=== PATIENT | female | born 1990 | race Caucasian/White ===

== ENCOUNTER 2024-05-12 10:11 | Emergency (ER) | payer BC, SELFPAY ==
[2024-05-12 10:18] VITALS: BP 124/68; PULSE 78; TEMP 37.1; O2SAT 100; BMI 33.8
--- NOTE | 2024-05-12 10:28 | ED.GENADUL1 ---
HPI HPI - General Adult General Chief complaint: Vaginal Bleeding Stated complaint: PERIOD FOR 19 DAYS Time Seen by Provider: 05/12/24 10:19 Source: patient Mode of arrival: walk-in Limitations: no limitations History of Present Illness HPI narrative: 33-year-old female presents for vaginal bleeding which she has had for 19 days. She states it is heavier than a period. She reports that this has never happened to her previously and she is worried about becoming anemic. She has had some abdominal cramps and no fever or vomiting. Related Data Home Medications ?Medication ?Instructions ?Recorded ?Confirmed No Known Home Medications 05/12/24 05/12/24 Allergies Allergy/AdvReac Type Severity Reaction Status Date / Time tramadol (From Ultra) Allergy Rash Verified 05/12/24 10:16 Opioid HPI Opioid Management Most Recent Opioid Data: No Data to Display Review of Systems ROS Narrative A ten point review of systems is negative except as noted above. PFSH PFSH Social History Little interest or pleasure in doing things: not at all Feeling down, depressed, or hopeless: not at all Exam Narrative Exam Narrative: Nurses note and vital signs reviewed and patient is not hypoxic. General: The patient appears well and in no apparent distress. Patient is resting comfortably on cart. Skin: Warm, dry, no pallor noted. There is no rash noted. Head: Normocephalic, atraumatic Eye: Normal conjunctiva, no drainage Ears, Nose, Mouth, and Throat: oral mucosa is moist. Nares patent. Cardiovascular: Regular Rate and Rhythm Respiratory: Patient is in no distress, no accessory muscle use, lungs are clear to auscultation, no wheezing, rales or rhonchi Back: non-tender GI: Soft and nontender Musculoskeletal: The patient has no evidence of calf tenderness, no pitting edema, symmetrical pulses noted bilaterally Neurological: A&O, normal speech Psychiatric: Cooperative Constitutional Vital Signs, click to edit/add: Last Vital Signs Temp 98.8 F 05/12/24 10:18 Pulse 78 05/12/24 10:18 Resp 18 05/12/24 10:18 BP 124/68 05/12/24 10:18 Pulse Ox 100 05/12/24 10:18 O2 Del Method Room Air 05/12/24 10:18 Course Vital Signs Vital signs: Vital Signs Temperature 98.8 F 05/12/24 10:18 Pulse Rate 78 05/12/24 10:18 Respiratory Rate 18 05/12/24 10:18 Blood Pressure 124/68 05/12/24 10:18 Pulse Oximetry 100 05/12/24 10:18 Oxygen Delivery Method Room Air 05/12/24 10:18 Temperature 98.8 F 05/12/24 10:18 Pulse Rate 78 05/12/24 10:18 Respiratory Rate 18 05/12/24 10:18 Blood Pressure 124/68 05/12/24 10:18 Pulse Oximetry 100 05/12/24 10:18 Oxygen Delivery Method Room Air 05/12/24 10:18 Medical Decision Making MDM Narrative Medical decision making narrative: She is not and her hemoglobin is 11. She is able to be discharged home and will follow-up with her doctor. Treatment diagnosis and follow-up were discussed with the patient. Differential Diagnosis Differential Diagnosis: Menorrhagia, miscarriage, threatened miscarriage Lab Data Lab results reviewed: Yes I reviewed the patient's lab results Labs: Lab Results 05/12/24 Range/Units 10:35 WBC 10.6 (4.0-11.0) 10^3/uL RBC 3.75 L (4.20-5.40) 10^6/uL Hgb 11.0 L (12.0-16.0) g/dL Hct 32.8 L (36.0-48.0) % MCV 87.5 (81.0-99.0) fL MCH 29.3 (26.7-34.0) pg MCHC 33.5 (29.9-35.2) g/dL RDW 13.8 (11.0-15.0) % Plt Count 263 (150-450) 10^3/uL MPV 9.6 (9.5-13.5) fL Neut % (Auto) 56.8 (43.0-75.0) % Lymph % (Auto) 32.5 (20.5-60.0) % [place] % (Auto) 6.8 (1.7-12.0) % Eos % (Auto) 3.2 (0.9-7.0) % Baso % (Auto) 0.5 (0.2-2.0) % Neut # (Auto) 6.0 (1.4-6.5) 10^3/uL Lymph # (Auto) 3.4 (1.2-3.8) 10^3/uL [place] # (Auto) 0.7 (0.3-0.8) 10^3/uL Eos # (Auto) 0.3 (0.0-0.7) 10^3/uL Baso # (Auto) 0.1 (0.0-0.1) 10^3/uL Abs Immat Gran (auto) 0.02 (0.00-0.03) 10^3/uL Imm/Tot Granulo (auto) 0.2 (0.0-0.5) % Sodium 138 (136-145) mmol/L Potassium 3.4 L (3.5-5.1) mmol/L Chloride 104 (98-107) mmol/L Carbon Dioxide 29.1 (21.0-32.0) mmol/L Anion Gap 8.3 BUN 12.0 (7.0-18.0) mg/dL Creatinine 0.78 (0.55-1.02) mg/dL Est GFR ( Amer) >60 (>=60 mL/min/1.73m^2) Est GFR (Non-Af Amer) >60 (>=60 mL/min/1.73m^2) BUN/Creatinine Ratio 15.4 Glucose 88 (74-106) mg/dL Calcium 8.4 L (8.5-10.1) mg/dL Serum HCG, Qual Negative (NEGATIVE) Discharge Plan Discharge Chief Complaint: Vaginal Bleeding Clinical Impression: Menorrhagia Patient Disposition: Home, Self-Care Time of Disposition Decision: 11:15 Condition: Good Mode of Transportation: Private Vehicle Prescriptions / Home Meds: No Action No Known Home Medications Print Language: Lebanese Instructions: Menorrhagia (ED) Referrals: Physician,Non-Staff, MD [Primary Care Provider] - 1 week
[2024-05-12 10:42] LABS: Basophils Absolute Auto 0.1 10^3/uL (0.0-0.1); Basophils Percent Auto 0.5 % (0.2-2.0); Eosinophils Absolute Auto 0.3 10^3/uL (0.0-0.7); Eosinophils Percent Auto 3.2 % (0.9-7.0); Hematocrit 32.8 % (36.0-48.0); Immature Granulocytes Abs Auto 0.02 10^3/uL (0.00-0.03); Immature Granulocytes Pct Auto 0.2 % (0.0-0.5); Lymphocytes Absolute Auto 3.4 10^3/uL (1.2-3.8); Lymphocytes Percent Auto 32.5 % (20.5-60.0); Mean Corpuscular HGB Conc 33.5 g/dL (29.9-35.2); Mean Corpuscular Hemoglobin 29.3 pg (26.7-34.0); Mean Corpuscular Volume 87.5 fL (81.0-99.0); Mean Platelet Volume 9.6 fL (9.5-13.5); Monocytes Absolute Auto 0.7 10^3/uL (0.3-0.8); Monocytes Percent Auto 6.8 % (1.7-12.0); Neutrophils Percent Auto 56.8 % (43.0-75.0); Platelet Count 263 10^3/uL (150-450); Red Blood Count 3.75 10^6/uL (4.20-5.40); Red Cell Distribution Width 13.8 % (11.0-15.0); White Blood Count 10.6 10^3/uL (4.0-11.0)
[2024-05-12 11:02] LABS: Anion Gap 8.3; BUN Creatinine Ratio 15.4; Calcium 8.4 mg/dL (8.5-10.1); Carbon Dioxide 29.1 mmol/L (21.0-32.0); Chloride 104 mmol/L (98-107); Estimated GFR (African America >60 (>=60 mL/min/1.73m^2); Estimated GFR (Non-African Ame >60 (>=60 mL/min/1.73m^2); Glucose 88 mg/dL (74-106); Potassium 3.4 mmol/L (3.5-5.1); Sodium 138 mmol/L (136-145)
[2024-05-12 11:07] LABS: HCG Qualitative NEGATIVE (NEGATIVE); Internal Control Within Normal Limits
== END 2024-05-12 11:29 | disposition home or self-care (01) ==
PROVIDERS: Emergency Provider Emergency Medicine
DX: N92.0 Excessive and frequent menstruation with regular cycle (principal)
CPT/HCPCS: 36415; 80048; 84703; 85025; 99283

== ENCOUNTER 2025-01-03 16:10 | Emergency (ER) | payer BC, SELFPAY ==
--- OUTSIDE RECORDS SUMMARY | 2025-01-01 10:24 | XMS_ITS ---
Author Organization OHIP Support Name Relationship Address Phone BEDDOW, LAURA Significant Other Unknown Unavailab le BEDDOW, LAURA Significant Other Unknown Unavailab le BEDDOW, LAURA Significant Other Unknown Unavailab le BEDDOW, LAURA Significant Other Unknown Unavailab le BEDDOW, LAURA Significant Other Unknown Unavailab le BEDDOW, LAURA Significant Other Unknown Unavailab le BEDDOW, LAURA Significant Other Unknown Unavailab le BEDDOW, LAURA Significant Other Unknown Unavailab le BEDDOW, LAURA Significant Other Unknown Unavailab le BEDDOW, LAURA Significant Other Unknown Unavailab le BEDDOW, LAURA Significant Other Unknown Unavailab le BEDDOW, LAURA Significant Other Unknown Unavailab le BEDDOW, LAURA Significant Other Unknown Unavailab le BEDDOW, LAURA Significant Other Unknown Unavailab le BRIEN, MEGAN Mother Unknown [phone] BRIEN, MEGAN Mother Unknown [phone] BEDDOW, LAURA Significant Other Unknown [place]availab [place] [address] [phone] BRIEN, MEGAN Mother Unknown [phone] BRIEN, MEGAN Mother Unknown [phone] BEDDOW, LAURA Significant Other Unknown Unavailab [place] [address] [phone] BRIEN, MEGAN Mother Unknown [phone] BRIEN, MEGAN Mother Unknown [phone] BEDDOW, LAURA Significant Other Unknown Unavailab [place] [address] [phone] Care Team Providers 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 Name Role Phone ILANA MARQUEZ Primary Care Unavailable ILANA MARQUEZ Primary Care Unavailable GUMARO WATKINS Attending Unavailable KADE LYNCH Attending Unavailable ILANA MARQUEZ Referring Unavailable ILANA MARQUEZ Primary Care Unavailable ILANA MARQUEZ Primary Care Unavailable ILANA MARQUEZ Primary Care Unavailable ELY REEVES Attending Unavailable CANDELARIO SYKESA Janine Referring Unavailable NO PCP, NO PCP Primary Care Unavailable KROTZER LEVY M Referring Unavailable NO PCP, NO PCP Primary Care Unavailable KROTZER LEVY M Referring Unavailable NO PCP, NO PCP Primary Care Unavailable KRCANDELARIO KAISERA M Attending Unavailable KROTISATU LEVY M Referring Unavailable NO PCP, NO PCP Primary Care Unavailable KROTZER LEVY M Referring Unavailable NO PCP, NO PCP Primary Care Unavailable JEREMY LAM Referring Unavailable NO PCP, NO PCP Primary Care Unavailable JEREMY LAM Referring Unavailable NO PCP, NO PCP Primary Care Unavailable KADE LYNCH Referring Unavailable NO PCP, NO PCP Primary Care Unavailable CANDELARIO SYKESA M Attending Unavailable ARCENIO SYKES Referring Unavailable NO PCP, NO PCP Primary Care Unavailable KROTZER LEVY M Referring Unavailable KRAWILDA LEVY M Referring Unavailable KRLEVY KAISER Attending Unavailable Purpose PROBLEMS DATE TYPE CONDITION / CODE ATTENDING STATUS [facility] 01/01/2025 Unknown Encounter for supervision of normal , unspecified, first trimester / Z34.91(ICD-10) LEVY SYKES [facility] 01/01/2025 Unknown Encounter for gynecological examination (general) (routine) without abnormal findings / Z01.419(ICD-10) LEVY SYKES [facility] 01/01/2025 Unknown Initial Visit / FREETEXT(AOF) LEVY SYKES [facility] 12/15/2024 Unknown Threatened abort ion / O20.0(ICD-10) [facility] 12/09/2024 Unknown Other specified diseases and conditions complicating / O99.891(ICD-10) [facility] 12/09/2024 Unknown Dorsalgia, unspe cified / M54.9(ICD-10) [facility] 12/09/2024 Unknown Hemorrhage in ea rly , unspecified / O20.9(ICD-10) [facility] 12/09/2024 Unknown Other specified related conditions, first trimester / O26.891(ICD-10) [facility] 12/09/2024 Unknown Unspecified abdo catherine pain / R10.9(ICD-10) [facility] 10/19/2024 Unknown Chronic cough / R05.3(ICD-10) ELY REEVES [facility] 10/19/2024 Unknown Cough / FREETEXT(AOF) ELY REEVES [facility] 08/05/2024 Unknown Periapical absce ss without sinus / K04.7(ICD-10) [facility] 08/05/2024 Unknown Other specified disorders of teeth and supporting structures / K08.89(ICD-10) [facility] 08/05/2024 Unknown Localized swelli ng, mass and lump, head / R22.0(ICD-10) [facility] 08/05/2024 Unknown Dental Pain / FREETEXT(AOF) [facility] 04/08/2024 Unknown Amenorrhea, unsp ecified / N91.2(ICD-10) CRIS, KADE L [facility] 04/08/2024 Unknown Amenorrhea / FREETEXT(AOF) CRIS KADE L [facility] 04/02/2024 Unknown Acute bronchitis , unspecified / J20.9(ICD-10) GUMARO WATKINS [facility] 04/02/2024 Unknown Cold Like Sympto ms / FREETEXT(AOF) GUMARO WATKINS [facility] 02/06/2024 Unknown Phlebitis and thrombophlebitis of unspecified site / I80.9(ICD-10) [facility] 02/06/2024 Unknown Leg Pain / FREETEXT(AOF) NA [facility] 02/06/2024 Unknown Wound Check, Leg Pain / UNK(Unknown) NA Active [facility] PROCEDURES No Procedure Records Found VITAL SIGNS No Vital Signs Records Found RESULTS CHLAMYDIA/GONORRHOEAE BY PCR , FLUID Observed: 01/01/2025 11:36 AM Status: COMPLETED Source: [facility] CHLAMYD[place] PCR, [place] Negative Chlamydia trachomatis not detected by nucleic acid amplification. This does not exclude the possibility of infection because results are dependent on adequate specimen collection. GONORRHOEAE PCR, [place] Negative Neisseria gonorrhoeae not detected by nucleic acid amplification. This does not exclude the possibility of infection because results are dependent on adequate specimen collection. Performed By: #### CGTPCR ## ## [facility] ([facility]) [address] [place] [address] VIR HIGH RISK HPV W/HEIDI Collected: 11:36 AM Status: COMPLETED Source: [facility] TYPE CODE TESTS RESULT OUT OF RANGE REFERENCE UNITS LAB HPV16 HPV 16 Positive Abnormal Negative LAB HPV18 HPV 18 Negative Negative LAB HRHPV OTHER HIGH RISK HPV Negative Negative Result Comment: HPV types 31 , 33, 35, 39, 45, 52, 56, 58, 59, 66, and 68 DNA were undetectable. Performed By: #### HPV #### [facility] ([facility]) [address] [place] [address] VIR GLUCOSE TOLERANCE, 3 HOURS Collected: 0 12/29/2024 11:27 AM Status: COMPLETED Source: [facility] TYPE CODE TESTS RESULT OUT OF RANGE REFERENCE UNITS LAB GLU3 GLUCOSE TOLERANCE TEST, 3 HOUR 141 High 65-99 mg/dL Performed By: #### GLU3 #### [facility] ([facility]) [address] [place] [address] VIR SECOND HOUR GLUCOSE TOLERANC E 100 GM LOAD Collected: 12/29/2024 10:25 AM Status: COMPLETED Source: [facility] Order Comment: [employer] ational Workshop Conference: Recommendations and Rationale for Screening and diagnosis of Gestational Diabetes Mellitus 2 or more of the following must be met or exceeded for a positive diagnosis. FASTING: >=95 mg/dL 1hr post 100g load: >=180 mg/dL 2hr post 100g load: >=155 mg/dL 3hr post 100g load: >=140 mg/dL TYPE CODE TESTS RESULT OUT OF RANGE REFERENCE UNITS LAB 100GT2 2ND HR GTT 100GM LOAD 214 High 70-139 mg/dL Performed By: #### [id number] ## ## [facility] ([facility]) [address] [place] [address] VIR GLUCOSE TOLERANCE, 1 HOUR Collected: 12/29/2024 9:24 AM Status: COMPLETED Source: [facility] TYPE CODE TESTS RESULT OUT OF RANGE REFERENCE UNITS LAB GLU1 GLUCOSE TOLERANCE TEST, 1 HOUR 197 High 120-170 mg/dL Performed By: #### GLU1 #### [facility] ([facility]) [address] [place] [address] VIR GLUCOSE TOLERANCE, FASTING Collected: 8:20 AM Status: COMPLETED Source: [facility] TYPE CODE TESTS RESULT OUT OF RANGE REFERENCE UNITS LAB GLUF GLUCOSE TOLERANCE TEST, FASTING 85 65-99 mg/dL Performed By: #### GLUF #### [facility] ([facility]) [address] [place], [place] [id number] VIR CBC (NO DIFF) Collected: 12/25/2024 8:51 AM S tatus: COMPLETED Source: [facility] TYPE CODE TESTS RESULT OUT OF RANGE REFERENCE UNITS LAB WBC WBC 9.1 4-11 x10E9/L LAB RBC RBC COUNT 4.70 3.8-5.2 X10E12/L LAB HGB HEMOGLOBIN 11.4 Low 11.7-15.5 g/dL LAB HCT HEMATOCRIT 35.5 35-47 % LAB MCV MCV 76 Low 80-100 fL LAB MCH MCH 24.2 Low 27-34 pg LAB MCHC MCHC 32.1 32-36 g/dL LAB RDW RDW 17.3 High 11.5-15 % LAB PLTC PLATELET COUNT 332 150-450 X10E9/L LAB MPV MPV 8.2 7-12 fL Performed By: #### CBC #### [facility] ([facility]) [address] [place] [address] VIR GLU 1H POST 50G LOAD Collected: 12/25/2024 8:51 AM Status: COMPLETED Source: [facility] TYPE CODE TESTS RESULT OUT OF RANGE REFERENCE UNITS LAB GL1 GLUCOSE, 1HR POST 50GM LOAD 163 High 65-139 mg/dL Performed By: #### GL1 #### [facility] ([facility]) [facility] [place] [address] VIR TYPE AND SCREEN Collected: 12/25/2024 8:51 AM Status : C Source: [facility] TYPE CODE TESTS RESULT OUT OF RANGE REFERENCE UNITS LAB ABO_INTEP ABO_INTEP A LAB RH_INTEP RH_INTEP Positive LAB ABSC_INTEP ANTIBODY SCREEN Negative Performed By: #### TSC #### [facility] ([facility] [address] [place] [address] VIR SICKLE SOLUBILITY Collected: 12/25/2024 8:51 AM Status: COMPLETED Source: [facility] TYPE CODE TESTS RESULT OUT OF RANGE REFERENCE UNITS LAB SIKL SICKLE SOLUBILITY Negative Negative Performed By: #### SIKL #### [facility] ([facility]) [address] [place] [address] [place] [address] VIR HIV 1 AND 2 AB/AG SCREEN (P2 4 AG) Collected: 12/25/2024 8:51 AM Status: COMPLETED Source: [facility] Order Comment: This informat ion has been disclosed to you from confidential [...] release of HIV test results or diagnoses. TYPE CODE TESTS RESULT OUT OF RANGE REFERENCE UNITS LAB HIV4 HIV 1 AND 2 AB/AG SCREEN Non-Reactive Non-Reactive Performed By: #### HIV4 #### [facility] ([facility]) [address] [place] [address] [place] [address] VIR HEPATITIS PANEL, ACUTE Collected: 12/25/2024 8: 51 AM Status: COMPLETED Source: [facility] TYPE CODE TESTS RESULT OUT OF RANGE REFERENCE UNITS LAB HBAG HEPATITIS B SURF AG Non-Reactive Non-Reactive LAB HAVM HEPATITIS A IGM Non-Reactive Non-Reactive LAB HBCM HEPATITIS B CORE IGM Non-Reactive Non-Reactive LAB HCV ANTI HCV W/PCR REFLX Non-Reactive Non-Reactive Result Comment: If recent in fection suspected, recommend repeat testing (>2 months). Xrngrc-es-yfqnlc ratio is <1.0. Performed By: #### AHP #### [facility] ([facility]) [address] [place] [address] [place] [address] VIR RUBELLA ANTIBODY, IGG Collected: 2024 8:51 AM Status: COMPLETED Source: [facility] Order Comment: Interpretatio n < 8 NEGATIVE - considered not immune. 8 - 9 EQUIVOCAL - consider retesting with new specimen. > 9 POSITIVE - considered immune. TYPE CODE TESTS RESULT OUT OF RANGE REFERENCE UNITS LAB RUBE RUBELLA IGG 26 <9 IU/mL Performed By: #### RUBG #### [facility] ([facility]) [address] [place] [address] [address] [place] [address] VIR SYPHILIS TOTAL(UNKNOWN SYPHI LIS STATUS) Collected: 12/25/2024 8:51 AM Status: COMPLETED Source: [facility] Order Comment: NON REACTIVE No serologic evidence of infection to Treponema pallidum. Repeat testing may be considered in patients with suspected acute or primary syphilis in 2 to 4 weeks. TYPE CODE TESTS RESULT OUT OF RANGE REFERENCE UNITS LAB SYPHT SYPHILIS TOTAL <^0.2 <=0.8 AI Performed By: #### SYPHT ### # [facility] ([facility]) [address] [place] [address] [place] [address] VIR VARICELLA ZOSTER ANTIBODY, IGG Collected: 12/25 8:51 AM Status: COMPLETED Source: [facility] Order Comment: Intepretation < 0.9 Negative 0.9 - 1.0 Equivocal > 1.0 Positive TYPE CODE TESTS RESULT OUT OF RANGE REFERENCE UNITS LAB VZVG VARICELLA IGG 0.7 <1.0 AI Performed By: #### VZVG #### [facility] ([facility]) [address] [place] [address] [place] [address] VIR URINALYSIS Collected: 12/25/2024 8:16 AM S tatus: COMPLETED Source: [facility] Order Comment: Urine receive d without preservative. Delays in transport may affect results. Interpret with caution. A clinical correlation is recommended. TYPE CODE TESTS RESULT OUT OF RANGE REFERENCE UNITS LAB COLP COLOR Yellow Yellow LAB TURB TURBIDITY Clear Clear LAB SPGR SPECIFIC GRAVITY 1.020 1.003-1.035 NA LAB NITR NITRITE Negative Negative LAB PHUR PH,URINE 5.5 5.0-8.5 NA LAB LEST LEUKOCYTE ESTERASE Negative Negative LAB PRU PROTEIN Negative Negative LAB KET KETONES (URINE) Negative Negative LAB UROB UROBILINOGEN <1.1 eu/dL <1.1 eu/dL LAB BILEU BILIRUBIN (URINE) Negative Negative LAB BLUR BLOOD/HGB Negative Negative LAB GLUR GLUCOSE (URINE) Negative Negative Performed By: #### UA #### [facility] ([facility]) [address] [place] [address] VIR DRUG SCREEN, URINE Collected: 12/25/2024 8:16 AM Sta tus: COMPLETED Source: [facility] TYPE CODE TESTS RESULT OUT OF RANGE REFERENCE UNITS LAB AMPH AMPHETAMINE/METH AM P Negative Negative Result Comment: AMPH/METH sc reening cut off = 1000 ng/mL LAB COKE COCAINE METABOLITE Negative Negative Result Comment: Cocaine scre ening cut off value = 300 ng/mL LAB MDMA ECSTASY Negative Negative Result Comment: Ecstasy scre ening cut off value = 500 ng/mL LAB METH METHADONE Negative Negative Result Comment: Methadone sc reening cut off value = 300 ng/mL. LAB OPITM OPIATES Negative Negative Result Comment: Opiates scre ening cut off value = 300 ng/mL This test is used for the detection of codeine, hydrocodone (>1000 ng/mL), morphine and hydromorphone (>900 ng/mL) in urine. LAB OXYX OXYCODONE Negative Negative Result Comment: Oxycodone sc reening cut off value = 300 ng/mL This test is used for the detection of oxycodone and oxymorphone in urine. LAB PCP PHENCYCLIDINE Negative Negative Result Comment: Phencyclidin e screening cut off value = 25 ng/mL LAB THC CANNABINOIDS Negative Negative Result Comment: Cannabinoids /THC screening cut off value = 50 ng/mL LAB BRIGIDO BARBITURATES Negative Negative Result Comment: Barbiturates screening cut off value = 200 ng/mL LAB BZOTM BENZODIAZEPINES Negative Negative Result Comment: Benzodiazepi oscar screening cut off value = 200 ng/mL Performed By: #### DSU #### [facility] ([facility]) [address] [place] [address] VIR URINE CULTURE Observed: 12/25/2024 8:16 AM Status: COMPLETED Source: [facility] Order Comment: Urine receive d without preservative - delays in transport may affect results. Interpret with caution and clinical correlation is recommended. CULTURE RESULTS NO GROWTH AT <1000 CFU/mL Performed By: #### UC #### [facility] ([facility]) [address] [place] [address] VIR HCG-BETA, SERUM Collected: 10:01 AM Status: COMPLETED Source: [facility] Order Comment: WEEKS (SINCE LMP) MIU/mL 3 WEEKS 5 - 50 4 WEEKS 5 - 426 5 WEEKS 18 - 7,340 6 WEEKS 1,080 - 56,500 7-8 WEEKS 7,650 - 229,000 9-12 WEEKS 25,700 - 288,000 13-16 WEEKS 13,300 - 254,000 17-24 WEEKS 4,060 - 165,400 25-40 WEEKS 3,640 - 117,000 MALES AND NON- FEMALES - <5 MIU/mL This test has been FDA approved for use in only. Elevated levels are not necessarily diagnostic for trophoblastic or nontrophoblastic neoplasms. TYPE CODE TESTS RESULT OUT OF RANGE REFERENCE UNITS LAB HCG SERUM B HCG,3RD I.S. 6392 mIU/mL Performed By: #### HCG #### [facility] ([facility]) [address] [place] [address] VIR US PREG LESS THAN 14 WKS WITH TRANSVAGINAL Observed: 12/15/2024 8:59 AM Status: COMPLETED Source: [facility] US PREG LESS THAN 14 WKS WIT H TRANSVAGINAL CLINICAL INFORMATION: Prior ultrasound was of unknown location. Estimated gestational age of 8 weeks 0 days by last menstrual period. Last menstrual period: 10/20/2024. COMPARISON: Obstetric ultrasound dated 12/10/2024. FINDINGS: Transvaginal and limited transabdominal ultrasound of the pelvis. UTERUS AND GESTATIONAL SAC: Intrauterine gestation: Single. Gestational sac: Mean sac diameter of 0.9 cm. Normal rounded morphology noting small volume fluid within the sac. Yolk sac: 0.1 cm (suboptimally visualized) Sawyer-rump length (CRL): 0.7 cm corresponding to a gestational age of 6 weeks 4 days +/- 2 days. heart motion: 139 bpm. Subchorionic hemorrhage: None. OVARIES: No suspicious masses. Right ovary: 5.9 x 5.9 x 6.1 cm. Similar simple cysts for example measuring 3.0 x 2.4 x 2.2 cm. Similar 4.3 x 3.9 x 4.3 cm hemorrhagic cyst versus endometrioma. Left ovary: 4.6 x 2.4 x 3.4 cm. Benign corpus luteum measures 2.4 x 1.5 x 1.9 cm. Similar dominant follicle measures 1.7 x 0.9 x 1.3 cm. FREE FLUID: Small volume simple pelvic fluid. IMPRESSION: 1. Single live intrauterine gestation with crown-rump length measuring 0.7 cm corresponding to a gestational age of 6 weeks 4 days +/- 2 days. Relative small volume amniotic fluid noted within the gestational sac. Recommend attention on follow-up. 2. Similar right ovarian 4.3 cm hemorrhagic cyst versus endometrioma. 3. Similar right simple ovarian cysts. 4. Benign left corpus luteum. 5. Small volume simple pelvic fluid. Finalized by Mercedes Hensley MD on 12/15/2024 9:47 AM HCG-BETA, SERUM Collected: 8:15 AM Status: COMPLETED Source: [facility] Order Comment: WEEKS (SINCE LMP) MIU/mL 3 WEEKS 5 - 50 4 WEEKS 5 - 426 5 WEEKS 18 - 7,340 6 WEEKS 1,080 - 56,500 7-8 WEEKS 7,650 - 229,000 9-12 WEEKS 25,700 - 288,000 13-16 WEEKS 13,300 - 254,000 17-24 WEEKS 4,060 - 165,400 25-40 WEEKS 3,640 - 117,000 MALES AND NON- FEMALES - <5 MIU/mL This test has been FDA approved for use in only. Elevated levels are not necessarily diagnostic for trophoblastic or nontrophoblastic neoplasms. TYPE CODE TESTS RESULT OUT OF RANGE REFERENCE UNITS LAB HCG SERUM B HCG,3RD I.S. 3961 mIU/mL Performed By: #### HCG #### [facility] ([facility]) [address] [place] [address] VIR HCG-BETA, SERUM Collected: 7:53 AM Status: COMPLETED Source: [facility] Order Comment: WEEKS (SINCE LMP) MIU/mL 3 WEEKS 5 - 50 4 WEEKS 5 - 426 5 WEEKS 18 - 7,340 6 WEEKS 1,080 - 56,500 7-8 WEEKS 7,650 - 229,000 9-12 WEEKS 25,700 - 288,000 13-16 WEEKS 13,300 - 254,000 17-24 WEEKS 4,060 - 165,400 25-40 WEEKS 3,640 - 117,000 MALES AND NON- FEMALES - <5 MIU/mL This test has been FDA approved for use in only. Elevated levels are not necessarily diagnostic for trophoblastic or nontrophoblastic neoplasms. TYPE CODE TESTS RESULT OUT OF RANGE REFERENCE UNITS LAB HCG SERUM B HCG,3RD I.S. 2789 mIU/mL Performed By: #### HCG #### [facility] ([facility]) [address] [place] [address] VIR US PREG LESS THAN 14 WKS WITH TRANSVAGINAL Observed: 12/10/2024 2:10 PM Status: COMPLETED Source: [facility] US PREG LESS THAN 14 WKS WIT H TRANSVAGINAL US PREG LESS THAN 14 WKS WITH TRANSVAGINAL: 12/10/2024 2:10 PM Clinical: Bleeding in early . Real-time transabdominal and transvaginal sonography pelvis performed. In the endometrium, there appears to be flickering cardiac activity at 1 28 bpm. However, there is almost no surrounding amniotic fluid and embryonic pole could not be measured with certainty. The right ovary is enlarged measuring 6.0 x 5.3 x 8.5 cm. Right ovary contains multiple simple cysts measuring up to 3.5 cm. In addition, there is a solid- appearing hypoechoic mass in the right ovary measuring 4.3 cm without internal color flow vascularity. Left ovary measures 4.1 x 2.6 x 2.7 cm. There is a vague hyperechoic area in the left ovary measuring approximately 2 cm, without color flow vascularity. Moderate amount of cul-de-sac fluid present. IMPRESSION: * Intrauterine suspected with cardiac activity identified but almost no surrounding amniotic fluid and unmeasurable embryonic pole. * Abnormal multicystic right ovary with the presence of a more solid 4.3 cm lesion, differential diagnosis includes endometrioma and hemorrhagic cyst. * Ectopic difficult to exclude. * Short-term follow-up and beta hCG correlation recommended recommended. THIS REPORT CONTAINS A SIGNIFICANT RESULT AND/OR RECOMMENDATION, WHICH REQUIRES THE ATTENTION OF THE LICENSED CAREGIVER RESPONSIBLE FOR THIS PATIENT. THEREFORE, I SPECIFICALLY DESIGNATED THIS REPORT TO BE TELEPHONED BY THE RADIOLOGY DEPARTMENT. Finalized by James Paez MD on 12/10/2024 3:16 PM HCG-BETA, SERUM Collected: 8:11 AM Status: COMPLETED Source: [facility] Order Comment: WEEKS (SINCE LMP) MIU/mL 3 WEEKS 5 - 50 4 WEEKS 5 - 426 5 WEEKS 18 - 7,340 6 WEEKS 1,080 - 56,500 7-8 WEEKS 7,650 - 229,000 9-12 WEEKS 25,700 - 288,000 13-16 WEEKS 13,300 - 254,000 17-24 WEEKS 4,060 - 165,400 25-40 WEEKS 3,640 - 117,000 MALES AND NON- FEMALES - <5 MIU/mL This test has been FDA approved for use in only. Elevated levels are not necessarily diagnostic for trophoblastic or nontrophoblastic neoplasms. TYPE CODE TESTS RESULT OUT OF RANGE REFERENCE UNITS LAB HCG SERUM B HCG,3RD I.S. 1982 mIU/mL Performed By: #### HCG #### [facility] ([facility]) [address] [place] [address] VIR TYPE AND SCREEN Collected: 12/06/2024 8:16 AM Status : C Source: [facility] TYPE CODE TESTS RESULT OUT OF RANGE REFERENCE UNITS LAB ABO_INTEP ABO_INTEP A LAB RH_INTEP RH_INTEP Positive LAB ABSC_INTEP ANTIBODY SCREEN Negative Performed By: #### TSC #### [facility] ([address] [address] VIR HCG-BETA, SERUM Collected: 8:11 AM Status: COMPLETED Source: [facility] Order Comment: WEEKS (SINCE LMP) MIU/mL 3 WEEKS 5 - 50 4 WEEKS 5 - 426 5 WEEKS 18 - 7,340 6 WEEKS 1,080 - 56,500 7-8 WEEKS 7,650 - 229,000 9-12 WEEKS 25,700 - 288,000 13-16 WEEKS 13,300 - 254,000 17-24 WEEKS 4,060 - 165,400 25-40 WEEKS 3,640 - 117,000 MALES AND NON- FEMALES - <5 MIU/mL This test has been FDA approved for use in only. Elevated levels are not necessarily diagnostic for trophoblastic or nontrophoblastic neoplasms. TYPE CODE TESTS RESULT OUT OF RANGE REFERENCE UNITS LAB HCG SERUM B HCG,3RD I.S. 738 mIU/mL Performed By: #### HCG #### [facility] ([facility]) [address] [place] [address] VIR XR CHEST 2 VWS Observed: 10/19/2024 12:52 AM Status: COMPLETED Source: [facility] XR CHEST 2 VWS History: Cough Exam/Technique: PA and lateral chest Comparison: 04/02/2024 Findings: There is no evidence of active pulmonary or pleural disease. Cardiac and mediastinal contours are within normal limits. IMPRESSION: Normal chest radiographs. Finalized by Ángel Posadas MD on 10/19/2024 12:54 AM XR CHEST 1 VW Observed: 04/02/2024 7:32 PM Status: COMPLETED Source: [facility] XR CHEST 1 VW XR CHEST 1 VW 04/02/2024 7:32 PM INDICATION: Cough and fever COMPARISON: XR chest 07/09/2022 TECHNIQUE: AP upright radiographic view(s) obtained. FINDINGS: Respiratory: No pneumothorax, pleural effusion, or focal consolidation. Cardiomediastinum: Nonenlarged. IMPRESSION: * No acute pulmonary process. Approved by Resident: Luis Miguel Raygoza MD on 04/02/2024 7:33 PM I, Bryce Parker MD have personally reviewed the image(s) and agree with and/or edited the report Finalized by Bryce Parker MD on 04/02/2024 7:36 PM SARS/FLU A+B/RSV BY NAAT/MOLECULAR Observed: 04/02/2024 7:25 PM Status: COMPLETED Source: [facility] FLU A PCR Positive (qualifier value) FLU B PCR Negative (qualifier value) RSV by PCR Negative (qualifier value) SARS CoV 2 Not detected (qualifier value) NOTE The Xpert Xpress SARS-CoV-2/Flu/RSV Plus test is a rapid, multiplexed real-time RT-PCR test intended for the simultaneous qualitative detection and differentiation of SARS-CoV-2, influenza A, influenza B and respiratory syncytial virus (RSV) viral RNA from individuals suspected of respiratory viral infection consistent with COVID-19 by their healthcare provider. This test has not been validated in asymptomatic patients. The Xpert Xpress SARS-CoV-2 test is intended for use by qualified and trained operators who are performing tests using either [employer] or [employer] systems and is limited to laboratories that meet the CLIA requirements to perform high and moderate complexity tests. The Xpert Xpress SARS-CoV-2/Flu/RSV Plus is only for use under the Food and Drug Administration's Emergency Use Authorization. Results are for the simultaneous detection and differentiation of SARS-CoV-2, influenza A, influenza B and RSV nucleic acids in clinical specimens. SARS-CoV-2, influenza A, influenza B and RSV RNA identified by this test are generally detectable in upper respiratory samples during the acute phase of infection. Positive results are indicative of the presence of the identified virus, but do not rule out bacterial infection or co-infection with other pathogens not detected by this test. Clinical correlation with patient history and other diagnostic information is necessary to determine patient infection status. The agent detected may not be the definite cause of disease. Negative results do not preclude SARS-CoV-2, influenza A, influenza B and RSV infection and should not be used as the sole basis for treatment or other patient management decisions. Negative results must be combined with clinical observations, patient history and epidemiological information. An Invalid result may occur with specimen-associated inhibition unable to be resolved with specimen repeat. Fact Sheet for Healthcare Providers: https://www.fda.gov/media/198971/download Fact Sheet for Patients: https://www.fda.gov/media/704803/download Performed By: #### COVFLR ## ## [facility] ([id number]) [address] [place] [address] D DIMER Collected: 4 3:45 PM Status: COMPLETED Source: [facility] TYPE CODE TESTS RESULT OUT OF RANGE REFERENCE UNITS LAB DDMR(LOINC) D DIMER <150 <255 ng/mL DDU Result Comment: Results <255 ng/mL DDU: The presence of a VTE can safely be excluded with a negative D-Dimer result and Wells score. A negative result doesn't exclude the possibility of DIC. The test be repeated along with other diagnostic tests if the patient's symptoms persist or worsen. [email or web address] Performed By: #### [id number] # ### [facility] ([id number]) [address] [facility] [place], [place] [address] ALLERGIES DATE TYPE / CODE NAME / CODE REACTION SEVERITY SOURCE 01/20/2017 DRUG INGREDI~NON-CBORD/41 [id number](SNOMED CT) TRAMADOL Anxiety Low [facility] ENCOUNTERS ADMIT/DISCHARGE ACCOUNT NUMBER ADMITTING ENCOUNTER CLASS LOCATION SOURCE 01/01/2025/ 5 [id number] Ambulatory Buildin 18 [facility] 12/29/2024 [id number] Ambulatory Building:[facility] 12/25/2024 [id number] Ambulatory Building:[facility] 12/23/2024/ 5 [id number] Ambulatory Buildin 18 [facility] 12/15/2024 [id number] Ambulatory Building: C _LAB [facility] 12/15/2024/ 5 [id number] Ambulatory Building:[facility] 12/13/2024 [id number] [facility] 12/11/2024 [id number] Amb[facility] 12/10/2024/ 5 [id number] Ambulatory Building:[facility] 12/09/2024 [id number] Ambulatory Building:[facility] _LAB [facility] 12/06/2024 [id number] Amb[facility] 12/06/2024 [id number] Ambulatory Building:[facility] 10/19/2024/ 5 [id number] Emergency Building:PF _EDRoom: 2Bed: 02 [facility] 08/05/2024/ 5 [id number] Emergency Building:PF _EDRoom: 13Bed: 13 [facility] 04/08/2024/ 4 [id number] Ambulatory Buildin 18 [facility] 04/02/2024/ 4 [id number] Emergency Building:[facility] _EDRoom: 4Bed: 04 [facility] 02/06/2024/ 4 [id number] Emergency Building:[facility] _EDRoom: H2Bed: H2 [facility] FUNCTIONAL STATUS No Functional Status Records Found EQUIPMENT No Equipment Records Found PAYERS ENCOUNTER GUARANTOR PAYER SUBSCRIBER SOURCE 01/01/2025 [facility] [address] [address]Nvq: (HP) Primary Insurance:BCBS OUT OF STATE PPO/TRUSTPolicy Number: [id number] tive Date:2023-04-09 [facility] [id number] [address] [address]Udl: (WP) [facility] 12/29/2024 [facility] [address] [address]Ckq: (HP) Primary Insurance:BCBS OUT OF STATE PPO/TRUSTPolicy Number: [id number] tive Date:2023-04-09 [facility] [id number] [address] [address]Ske: (WP) [facility] 12/25/2024 [facility] [address] [address]Tgs: (HP) Primary Insurance:BCBS OUT OF STATE PPO/TRUSTPolicy Number: [id number] tive Date:2023-04-09 [facility] [id number] [address] [address]Uav: (WP) [facility] 12/23/2024 [facility] [address] [place] [address]Cqu: (HP) Primary Insurance:BCBS OUT OF STATE PPO/TRUSTPolicy Number: [id number] tive Date:2023-04-09 [facility]: [id number] [address] [place] [address]Zmj: (WP) [facility] 12/15/2024 [facility] [address] [place] [address]Skq: (HP) Primary Insurance:BCBS OUT OF STATE PPO/TRUSTPolicy Number: [id number] tive Date:2023-04-09 [facility]: [id number] [address] [place] [address]Ems: (WP) [facility] 12/15/2024 [facility]UCEDO WESTONDOB: [address] [place] [address]Zzk: (HP) Primary Insurance:BCBS OUT OF STATE PPO/TRUSTPolicy Number: [id number] tive Date:2023-04-09 [facility]: [id number] [address] [place] [address]Moc: (WP) [facility] 12/13/2024 LA[facility]Y SAUCEDO WESTONDOB: [address] [place] [address]Eoi: (HP) Primary Insurance:BCBS OUT OF STATE PPO/TRUSTPolicy Number: [id number] tive Date:2023-04-09 [facility]: [id number] [address] [place] [address]Bcr: (WP) [facility] 12/11/2024 [facility] [address] [address]Wrd: (HP) Primary Insurance:BCBS OUT OF STATE PPO/TRUSTPolicy Number: [id number] tive Date:2023-04-09 [facility]: [id number] [address] [address]Eix: (WP) [facility] 12/10/2024 [facility] [address] [address]Ebb: (HP) Primary Insurance:BCBS OUT OF STATE PPO/TRUSTPolicy Number: [id number] tive Date:2023-04-09 [facility]: [id number] [address] [address]Saa: (HP) (WP) [facility] 12/09/2024 [facility] [address] [address]Lvf: (HP) Primary Insurance:BCBS OUT OF STATE PPO/TRUSTPolicy Number: [id number] tive Date:2023-04-09 [facility]: [id number] [address] [address]Epw: (WP) [facility] 12/06/2024 [facility] [address] [address]Ccv: (HP) Primary Insurance:BCBS OUT OF STATE PPO/TRUSTPolicy Number: [id number] tive Date:2023-04-09 [facility]: [id number] [address] [address]Ilb: (HP) (WP) [facility] 12/06/2024 [facility] [address] [address]Wrl: (HP) Primary Insurance:BCBS OUT OF STATE PPO/TRUSTPolicy Number: [id number] tive Date:2023-04-09 [facility]: [id number] [address] [address]Fip: (HP) (WP) [facility] 10/19/2024 [facility] [address] [address]Vmy: (HP) Primary Insurance:BCBS OUT OF STATE PPO/TRUSTPolicy Number: [id number] tive Date:2023-04-09 [facility]: [id number] [address] [address]Pbg: (HP) (WP) [facility] 08/05/2024 [facility]: [address] [address]Sek: (HP) Primary Insurance:BCBS OUT OF STATE PPO/TRUSTPolicy Number: [id number] tive Date:2023-04-09 [facility]: [id number] [address] [address]Zft: (HP) (WP) [facility] 04/08/2024 [facility] [address] [address]Evm: (HP) Primary Insurance:BCBS OUT OF STATE PPO/TRUSTPolicy Number: [id number] tive Date:2023-04-09 [facility]: [id number] [address] [address]Bkf: (HP) (WP) [facility] Ambulatory [facility] 04/02/2024 [facility] [address] [address]Ujf: (HP) Primary Insurance:BCBS OUT OF STATE PPO/TRUSTPolicy Number: [id number] tive Date:2023-04-09 [facility]: [id number] [address] [address]Gwm: (HP) (WP) [facility] 02/06/2024 [facility] [address] [address]Pjc: (HP) Primary Insurance:BCBS OUT OF STATE PPO/TRUSTPolicy Number: [id number] tive Date:2023-04-09 [facility]: [id number] [address] [address]Ihw: (HP) (WP) [facility] SOCIAL HISTORY No Social History Records Found FAMILY HISTORY No Family History Records Found ADVANCE DIRECTIVES No Advanced Directives Records Found INFORMATION SOURCE DATE CREATED AUTHOR AUTHOR'Barby GARRIDO 01/03/2025 OHSILVIO
[2025-01-03 16:12] VITALS: BP 116/80; PULSE 77; TEMP 37.1; O2SAT 98; BMI 34.8
--- NOTE | 2025-01-03 16:23 | ED.GENADUL1 ---
HPI HPI - General Adult General Chief complaint: OB/Uterine Contractions Stated complaint: 9 WEEK Time Seen by Provider: 01/03/25 16:14 Source: patient Mode of arrival: walk-in Limitations: no limitations History of Present Illness HPI narrative: Patient is a G2, P1 Ab0 approximately 9-week female who presents to the emergency department with complaints of diffuse lower abdominal cramping and spotting that has led to passage of clots. Patient denies any associated back pain, upper abdominal pain, hematuria, dysuria, nausea or vomiting. Nothing taken [id number]. Time Location: Reports abdomen and pelvis Quality: Reports other (cramping) Pain Consistency: Reports constant Relieving factors: Reports none Treatments prior to arrival: Reports none Related Data Home Medications ?Medication ?Instructions ?Recorded ?Confirmed No Known Home Medications 05/12/24 01/03/25 Allergies Allergy/AdvReac Type Severity Reaction Status Date / Time tramadol (From Ultra) Allergy Rash Verified 05/12/24 10:16 Review of Systems ROS Status of ROS 10 or more systems reviewed and unremarkable except as noted in history and below Constitutional Denies: fever Cardiovascular Denies: chest pain Respiratory Denies: shortness of breath Gastrointestinal Reports: constipation; Denies: diarrhea PFSH PFSH Social History Little interest or pleasure in doing things: not at all Feeling down, depressed, or hopeless: not at all Exam Constitutional Vital Signs, click to edit/add: Last Vital Signs Temp 98.7 F 01/03/25 16:12 Pulse 77 01/03/25 16:12 Resp 18 01/03/25 16:12 BP 116/80 01/03/25 16:12 Pulse Ox 98 01/03/25 16:12 O2 Del Method Room Air 01/03/25 16:12 Documenting provider has reviewed patient's vital signs: yes Common normals: no apparent distress, average body habitus, oriented x3, no limitations, healthy appearing and alert Respiratory Common normals: normal respiratory effort and no retractions Cardio Common normals: regular rate and regular rhythm GI Common normals: Normal to inspection, nondistended, normoactive bowel sounds present (Gravid) Palpation: soft and tender Details: LLQ and RLQ Course Course Hospital Course: Patient is a G2, P1 9-week 34-year-old female presents emergency department with abdominal pain, cramping and vaginal spotting that led to vaginal bleeding with the passage of large clot. Laboratory testing and ultrasound will be ordered. Vital Signs Vital signs: Vital Signs Temperature 98.7 F 01/03/25 16:12 Pulse Rate 77 01/03/25 16:12 Respiratory Rate 18 01/03/25 16:12 Blood Pressure 116/80 01/03/25 16:12 Pulse Oximetry 98 01/03/25 16:12 Oxygen Delivery Method Room Air 01/03/25 16:12 Temperature 98.7 F 01/03/25 16:12 Pulse Rate 77 01/03/25 16:12 Respiratory Rate 18 01/03/25 16:12 Blood Pressure 116/80 01/03/25 16:12 Pulse Oximetry 98 01/03/25 16:12 Oxygen Delivery Method Room Air 01/03/25 16:12 Medical Decision Making MDM Narrative Medical decision making narrative: Patient presenting to the emergency department with vaginal bleeding and lower abdominal cramping with passage of a large clot. Patient had passed multiple other clots while in the emergency department. Laboratory testing today revealed a quantitative hCG of 1694 and measurement of 6-week 2-day with a reported gestational age of 9 weeks 4 days and no cardiac activity. I did discuss likely demise with the patient but also stressed the importance of need for follow-up with her OB on Sunday. I discussed reasons to return to the emergency department including uncontrolled bleeding, uncontrolled pain, lightheadedness or dizziness. Differential Diagnosis Differential Diagnosis: Spontaneous AB, subchorionic hemorrhage, acute cystitis Medical Records Medical records reviewed: Yes I reviewed the patient's medical records Lab Data Lab results reviewed: Yes I reviewed the patient's lab results Lab results narrative: Quantitative hCG of 1694 concerning for demise given the patient's reported age of 9 weeks Labs: Lab Results 01/03/25 01/03/25 Range/Units 16:37 17:25 WBC 8.4 (4.0-11.0) 10^3/uL RBC 4.80 (4.20-5.40) 10^6/uL Hgb 11.6 L (12.0-16.0) g/dL Hct 36.8 (36.0-48.0) % MCV 76.7 L (81.0-99.0) fL MCH 24.2 L (26.7-34.0) pg MCHC 31.5 (29.9-35.2) g/dL RDW 16.6 H (11.0-15.0) % Plt Count 322 (150-450) 10^3/uL MPV 9.3 L (9.5-13.5) fL Neut % (Auto) 61.0 (43.0-75.0) % Lymph % (Auto) 27.6 (20.5-60.0) % [place] % (Auto) 7.4 (1.7-12.0) % Eos % (Auto) 3.3 (0.9-7.0) % Baso % (Auto) 0.5 (0.2-2.0) % Neut # (Auto) 5.1 (1.4-6.5) 10^3/uL Lymph # (Auto) 2.3 (1.2-3.8) 10^3/uL [place] # (Auto) 0.6 (0.3-0.8) 10^3/uL Eos # (Auto) 0.3 (0.0-0.7) 10^3/uL Baso # (Auto) 0.0 (0.0-0.1) 10^3/uL Abs Immat Gran (auto) 0.02 (0.00-0.03) 10^3/uL Imm/Tot Granulo (auto) 0.2 (0.0-0.5) % Sodium 137 (136-145) mmol/L Potassium 3.7 (3.5-5.1) mmol/L Chloride 105 (98-107) mmol/L Carbon Dioxide 25.8 (21.0-32.0) mmol/L Anion Gap 9.9 BUN 8.0 (7.0-18.0) mg/dL Creatinine 0.59 (0.55-1.02) mg/dL Est GFR ( Amer) >60 (>=60 mL/min/1.73m^2) Est GFR (Non-Af Amer) >60 (>=60 mL/min/1.73m^2) BUN/Creatinine Ratio 13.6 Glucose 106 (74-106) mg/dL Calcium 8.4 L (8.5-10.1) mg/dL Total Bilirubin 0.3 (0.2-1.0) mg/dL AST 19 (15-37) U/L ALT 33 (14-59) U/L Alkaline Phosphatase 81 (46-116) U/L Total Protein 6.8 (6.4-8.2) g/dL Albumin 3.1 L (3.4-5.0) g/dL Globulin 3.7 g/dL Albumin/Globulin Ratio 0.8 HCG, Quant 1694 mIU/mL Urine Color Lt. yellow (YELLOW) Urine Clarity Clear (CLEAR) Urine pH 6.0 (5.0-9.0) Ur Specific [place] <=1.005 A (1.005-1.025) Urine Protein Negative (NEG/TRACE) mg/dL Urine Glucose (UA) Negative (NEGATIVE) mg/dL Urine Ketones Negative (NEGATIVE) mg/dL Urine Occult Blood Large A (NEGATIVE) Urine Nitrite Negative (NEGATIVE) Urine Bilirubin Negative (NEGATIVE) Urine Urobilinogen 0.2 (0.2-1.0) EU/dL Ur Leukocyte Esterase Negative (NEGATIVE) Urine RBC 2-5 A (0-2) #/HPF Urine WBC None seen (NONE SEEN) #/HPF Ur Squamous Epith Cells Few A (NONE/RARE) #/LPF Urine Crystals None seen (None Seen) #/HPF Urine Bacteria Trace A (NONE SEEN) #/HPF Urine Casts None seen (NONE SEEN) #/LPF Urine Mucus None seen (NONE SEEN) Blood Type A Positive Discharge Plan Discharge Stand Alone Forms: Work/School Release Chief Complaint: OB/Uterine Contractions Clinical Impression: demise Patient Disposition: Home, Self-Care Time of Disposition Decision: 18:55 Condition: Fair Mode of Transportation: Private Vehicle Prescriptions / Home Meds: No Action No Known Home Medications Print Language: Cypriot Instructions: Miscarriage (ED) Additional Instructions: Your quantitative hCG was 1694 The measurement of the fetus was 6 weeks 2 days compared to 9 weeks 4 days it should be measuring There is no cardiac activity These are consistent with demise Referrals: Physician,Non-Staff, [Primary Care Provider] - 1 week
--- NOTE | 2025-01-03 16:24 | US_ITS ---
The [address] [address] Patient Name: LAURY POWELL MRN: [id number] date: 1990 Sex: F Assigned Patient Location: ER Current Patient Location: ER Accession/Order Number: [id number] Exam Date: 01/03/2025 16:25 Report Date: 01/03/2025 18:44 At the request of: NOHEMY VALENZUELA Procedure: US OB transvaginal US OB transvaginal 01/03/2025 5:16 PM SIGNS AND SYMPTOMS: ^11 wk ago ^abd bleeding and cramping \S.br\ COMPARISON: None. TECHNIQUE: Limited pelvic ultrasound using transvesical sonography. FINDINGS: An early intrauterine is identified. The visualized fetus has an estimated gestational age of 6 weeks and 4 days which is discordant with the estimated gestational age of 9 weeks 2 days. No cardiac activity is visualized on the current exam.. A normal amount of amniotic fluid is present. There is a heterogeneous collection adjacent to the gestational sac measuring 1.8 x 0.9 x 0.8 This is predominantly hypoechoic and may represent subchorionic hemorrhage. Pelvic survey reveals no gross abnormalities. Ovaries: Normal in size and echogenicity. Right measurements: 3.0 x 1.7 x 1.5 cm Left measurements: 3.4 x 1.8 x 1.7 cm US/US OB transvaginal IMPRESSION: The visualized fetus has an estimated gestational age of 6 weeks and 4 days which is discordant with the estimated gestational age of 9 weeks 2 days. No cardiac activity is noted on the current exam. These findings suggest demise. This is predominantly hypoechoic and may represent subchorionic hemorrhage. Impression dictated by: Reggie Humphries M.D. 01/03/2025 6:44 PM Dictation Location: [place] [address] Electronically authenticated by: [id number] Y Date: 01/03/2025 18:44
[2025-01-03 16:44] LABS: Hematocrit 36.8 % (36.0-48.0); Hemoglobin 11.6 g/dL (12.0-16.0); Immature Granulocytes Abs Auto 0.02 10^3/uL (0.00-0.03); Immature Granulocytes Pct Auto 0.2 % (0.0-0.5); Lymphocytes Absolute Auto 2.3 10^3/uL (1.2-3.8); Mean Corpuscular HGB Conc 31.5 g/dL (29.9-35.2); Mean Corpuscular Hemoglobin 24.2 pg (26.7-34.0); Mean Corpuscular Volume 76.7 fL (81.0-99.0); Platelet Count 322 10^3/uL (150-450); Red Blood Count 4.80 10^6/uL (4.20-5.40); White Blood Count 8.4 10^3/uL (4.0-11.0)
[2025-01-03 17:00] LABS: Alanine Aminotransferase 33 U/L (14-59); Albumin Globulin Ratio 0.8; Albumin Level 3.1 g/dL (3.4-5.0); Alkaline Phosphatase 81 U/L (46-116); Anion Gap 9.9; Aspartate Amino Transferase 19 U/L (15-37); Blood Urea Nitrogen 8.0 mg/dL (7.0-18.0); Calcium 8.4 mg/dL (8.5-10.1); Carbon Dioxide 25.8 mmol/L (21.0-32.0); Chloride 105 mmol/L (98-107); Estimated GFR (African America >60 (>=60 mL/min/1.73m^2); Estimated GFR (Non-African Ame >60 (>=60 mL/min/1.73m^2); Globulin 3.7 g/dL; Glucose 106 mg/dL (74-106); Potassium 3.7 mmol/L (3.5-5.1); Sodium 137 mmol/L (136-145); Total Protein 6.8 g/dL (6.4-8.2)
[2025-01-03 17:39] LABS: Glucose Urine UA NEGATIVE (NEGATIVE)
[2025-01-03 17:47] LABS: Cast Seen? NONE SEEN #/LPF (NONE SEEN); Crystals Seen? None Seen #/HPF (None Seen)
== END 2025-01-03 19:04 | disposition home or self-care (01) ==
PROVIDERS: Physician Assistant; Emergency Provider Emergency Medicine
DX: O02.1 Missed abortion (principal)
CPT/HCPCS: 36415; 76817; 80053; 81001; 84702; 85025; 86900; 86901; 99284; 99285

== ENCOUNTER 2025-01-05 21:29 | Emergency (ER) | payer BC, SELFPAY ==
--- OUTSIDE RECORDS SUMMARY | 2024-12-23 08:30 | XMS_ITS | Encounter Summary ---
Author Organization [employer] Address [id number] [address] [place] [address] Care Team Providers Care Medical Engineer Name Role Phone Unavailable Primary Care Provider Unavailabl e Reason for Visit * Reason Comments Initial Visit Encounter Details Date Type Department Care Team (Late st Contact Info) Description 12/23/2024 8:30 AM EDT Telemedicine [facility] Obstetrics/Gynecolog y [address] [place] [phone] Ernestine Hopkins, NURSE CLINICIAN-[employer] [address] [place], [place] [id number] care, first trimester (Primary Dx); Obesity in Social History Tobacco Use Types Packs/Day Years Used Date Smoking Tobacco: Every Day Cigarettes 0.5 13 Smokeless Tobacco: Never Alcohol Use Standard Drinks/Week Comments Yes 0 (1 standard drink = 0.6 oz pur e alcohol) OCCASIONAL PHQ-2 Answer Date Recorded Total Score 15 08/02/2023 Childcare Answer Date Recorded Childcare Unknown 09/18/2018 Employment Answer Date Recorded Employment Unknown 09/18/2018 Hunger Screening Answer Date Recorded Within the past 12 months we worried whether our food would run out before we got money to buy more. Never True 10/19/2024 Within the past 12 months th e food we bought just didn't last and we didn't have money to get more. Never True 10/19/2024 Purpose - Life Answer Date Recorded Purpose and direction in life Unknown Estimated Date of Delivery Comme nts Yes 08/06/2025 Based on Ultraso und Sex and Gender Information Value Date Recorded Sex Assigned at Not on file Legal Sex Female 11:45 AM EDT Gender Identity Not on file Sexual Orientation Not on file documented as of this encounter Last Filed Vital Signs Vital Sign Reading Time Taken Comments Blood Pressure - - Pulse - - Temperature - - Respiratory Rate - - Oxygen Saturation - - Inhaled Oxygen Concentration - - Weight 86.2 kg (190 lb) 12/23/2024 9:07 AM EDT Height - - Body Mass Index 34.75 10/19/2024 12:25 AM EDT documented in this encounter Patient Instructions * Attachments The following attachments cannot be sent through Care Everywhere. * Activity during (Ghanaian) * Healthy Weight Gain During (Ghanaian) * How to Adapt to Physical Changes During (Ghanaian) * Nutrition before and during (Ghanaian) * care (Ghanaian) * Taking medicines during (Ghanaian) * Smoking in (Ghanaian) documented in this encounter Progress Notes * Ernestine Hopkins, ALKA-[employer] - 12/23/2024 8:30 AM EDT OB Intake Video Visit 34 y.o. at 7w5d contacted through [facility] for OB intake video visit. verified and verbal consent obtained for video visit. Patient and provider both currently located in the [facility]. This was a planned . FOB involved (álvaro Ayers). Patient had some spotting last week, had an u/s. Blood type O positive. No current vaginal bleeding. Some nausea recently / no vomiting. Obstetrical, Medical, Surgical, Social & Family history reviewed. Reviewed EDC and patient has a follow up u/s scheduled for 01/26/25. Problem list updated. Negative history of GDM, PreE, delivery, short cervix, previous , HSV, PPH, shoulder dystocia, substance abuse, IUGR, macrosomia, severe anemia, or 4th degree lacerations. No hx uterine surgeries or LEEP. Risk factors include: smoker, asthma, elevated BMI, greater than 10 year interval. 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 Discussed testing. Pt desires all. The patient reports that there is not domestic violence in her life. Discussed exercise, diet and weight gain. Current BMI 34. Discussed smoking, alcohol use and drug use. Encouraged smoking cessation. Discussed early danger signs and when/how to notify provider. Reviewed CNM / [employer] care, collaboration & referral to RAILWAY SIGNAL OPERATOR as needed. Reviewed course of care. Discussed CDC recommendation for exclusive for the first 6 months. Patient has not been covid vaccinated. Discussed recommendations in . RX sent for vitamin. Will offer flu shot in the office. All questions answered. Educational materials provided through [facility]. labs ordered. Appointment scheduled for initial OB visit with provider on 01/01/25. MARTHA Og 12/23/249[address] documented in this encounter Plan of Treatment Upcoming Encounters Date Type Department Care Team (Late st Contact Info) Description 01/06/2025 8:15 AM EDT Office Visit [facility] Obstetrics/Gynecology [address] [place] [phone] Kae Grant MD [address] [place] [address] 01/26/2025 9:30 AM EDT Appointment [facility] - Ultrasound [address] [place] [address] Kae Grant MD [address] [place] [address] 03/12/2025 9:00 AM EST Office Visit [facility] Pulmonary/Sleep Medicine [address] [place] [phone] Carrie Mabry, [address] [address] documented as of this encounter Results * Sickle solubility (12/25/2024 8:51 AM EDT) Sickle Solubility Negative Negative 12/25/2024 2:53 PM EDT [facility] Blood Venous blood / Unknown Venipuncture / Unknown 12/25/2024 8:51 AM EDT 12/25/2024 8:51 AM EDT Ernestine Hopkins N[facility] CLINICIAN[facility] LAB BLOOD ORDERABLES Fin al Result Performing Organization Address [facility] [address] [facility] Phone Number [facility] [address] [place] [address] [place] [address], * Syphilis Total(Unknown Syphilis Status) (12/25/2024 8:51 AM EDT) SYPHILIS TOTAL <0.2 <=0.8 AI 12/25/2024 4:27 PM EDT [facility] Blood Venous blood / Unknown Venipuncture / Unknown 12/25/2024 8:51 AM EDT 12/25/2024 8:51 AM EDT [facility] - 12/25/2024 4:27 PM EDT NON REACTIVE No serologic evidence of infection to Treponema pallidum. Repeat testing may be considered in patients with suspected acute or primary syphilis in 2 to 4 weeks. Ernestine Hopkins [facility] BLOOD ORDERABLES Fin al Result Performing Organization Address [facility] [address]/[facility] de Phone Number [facility] [address] [place] [address] [place] [address], * Varicella zoster antibody, IgG (12/25/2024 8:51 AM EDT) VARICELLA IGG 0.7 <1.0 AI 12/25/2024 4:28 PM EDT [facility] Blood Venous blood / Unknown Venipuncture / Unknown 12/25/2024 8:51 AM EDT 12/25/2024 8:51 AM EDT Narrative [facility] - 12/25/2024 4:28 PM EDT Intepretation < 0.9 Negative 0.9 - 1.0 Equivocal > 1.0 Positive Ernestine Mehta Kellie NURSE CLINICIAN[facility] LAB BLOOD ORDERABLES Fin al Result [facility] [address] [place] [address], [place] [phone] * Hepatitis panel, acute (12/25/2024 8:51 AM EDT) [facility] HEPATITIS B SURF AG Non-Reacti ve Non-Reacti ve 12/25/2024 3:07 PM EDT [facility] HEPATITIS A IGM Non-Reacti ve Non-Reacti ve 12/25/2024 3:07 PM EDT [facility] HEPATITIS B CORE IGM Non-Reacti ve Non-Reacti ve 12/25/2024 3:07 PM EDT [facility] ANTI HCV W/PCR REFLX Non-Reacti ve Non-Reacti ve 12/25/2024 3:07 PM EDT [facility] Comment: If recent infection suspected, recommend repeat testing (>2 months). Ghieeu-ub-mrzrwa ratio is <1.0. Blood Venous blood / Unknown Venipuncture / Unknown 12/25/2024 8:51 AM EDT 12/25/2024 8:51 AM EDT Ernestine M Kellie [facility]IC[facility] LAB BLOOD ORDERABLES Fin al Result [facility] [address] [place] [address], [place] [phone] * Rubella antibody, IgG (12/25/2024 8:51 AM EDT) [facility] RUBELLA IGG 26 <9 IU/mL 12/25/2024 4:26 PM EDT [facility] Blood Venous blood / Unknown Venipuncture / Unknown 12/25/2024 8:51 AM EDT 12/25/2024 8:51 AM EDT Narrative [facility] - 12/25/2024 4:26 PM EDT Interpretation < 8 NEGATIVE - considered not immune. 8 - 9 EQUIVOCAL - consider retesting with new specimen. > 9 POSITIVE - considered immune. Ernestine Hopkins [facility] LAB BLOOD ORDERABLES Fin al Result [facility] [address] [place] [address], * Type and screen (12/25/2024 8:51 AM EDT) ABO A 12/25/2024 2:02 PM EDT [facility] RH Positive 12/25/2024 2:02 PM EDT [facility] Antibody Screen Negative 12/25/2024 2:02 PM EDT [facility] Blood Venous blood / Unknown Venipuncture / Unknown 12/25/2024 8:51 AM EDT 12/25/2024 8:51 AM EDT Ernestine Hopkins [facility] BLOOD BANK TEST ORDERABL ES Edited Result - Final Performing Organization Address City/[facility] [address]/ZIP Co de Phone Number [facility] [address] [place] [address], [facility] [address] [place] [address] [place] [address], * HIV 1&2 AB/AG Screen (P24 AG) (12/25/2024 8:51 AM EDT) HIV 1 AND 2 AB/AG SCREEN Non-Reacti ve Non-Reacti ve 12/25/2024 2:59 PM EDT [facility] Blood Venous blood / Unknown Venipuncture / Unknown 12/25/2024 8:51 AM EDT 12/25/2024 8:51 AM EDT Narrative [facility] - 12/25/2024 2:59 PM EDT This information has been disclosed to you from confidential records protected from disclosure by state law. You shall make no further disclosure of this information without the specific, written and informed release of the individual to whom it pertains, or as otherwise permitted by state law. A general authorization for the release of medical or other information is not sufficient for the purpose of the release of HIV test results or diagnoses. us Ernestine Hopkins NURSE CLINICIAN-[employer] LAB BLOOD ORDERABLES Fin al Result [facility] [address] [place] [address], * (ABNORMAL) CBC without diff (12/25/2024 8:51 AM EDT) WBC 9.1 4 - 11 x10E9/L 12/25/2024 1:39 PM EDT [facility] RBC Count 4.70 3.8 - 5.2 X10E12/L 12/25/2024 1:39 PM EDT [facility] Hemoglobin 11.4(L) 11.7 - 15.5 g/dL 12/25/2024 1:39 PM EDT [facility] Hematocrit 35.5 35 - 47 % 12/25/2024 1:39 PM EDT [facility] MCV 76(L) 80 - 100 fL 12/25/2024 1:39 PM EDT [facility] MCH 24.2(L) 27 - 34 pg 12/25/2024 1:39 PM EDT [facility] MCHC 32.1 32 - 36 g/dL 12/25/2024 1:39 PM EDT [facility] RDW 17.3(H) 11.5 - 15 % 12/25/2024 1:39 PM EDT [facility] Platelet Count 332 150 - 450 X10E9/L 12/25/2024 1:39 PM EDT [facility] MPV 8.2 7 - 12 fL 12/25/2024 1:39 PM EDT [facility] Blood Venous blood / Unknown Venipuncture / Unknown 12/25/2024 8:51 AM EDT 12/25/2024 8:51 AM EDT us Ernestine Hopkins NURSE CLINICIAN-[employer] LAB BLOOD ORDERABLES Fin al Result [facility] [address] [place] [address], * Drug Screen, Urine (12/25/2024 8:16 AM EDT) Pathologist [facility] AMPHETAMINE/METHAMP Negative Negative 12/25 2:08 PM EDT [facility] Comment:AMPH/METH screening cut off = 1000 ng/mL COCAINE METABOLITE Negative Negative 2024 2:08 PM EDT [facility] Comment:Cocaine screening cu t off value = 300 ng/mL ECSTASY Negative Negative 12/25/2024 2:08 PM EDT [facility] Comment:Ecstasy screening cu t off value = 500 ng/mL METHADONE Negative Negative 12/25/2024 2:08 PM EDT [facility] Comment:Methadone screening cut off value = 300 ng/mL. OPIATES Negative Negative 12/25/2024 2:08 PM EDT [facility] Comment: Opiates screening cut off value = 300 ng/mL This test is used for the detection of codeine, hydrocodone (>1000 ng/mL), morphine and hydromorphone (>900 ng/mL) in urine. OXYCODONE Negative Negative 12/25/2024 2:08 PM EDT [facility] Comment: Oxycodone screening cut off value = 300 ng/mL This test is used for the detection of oxycodone and oxymorphone in urine. PHENCYCLIDINE Negative Negative 12/25/2024 2:08 PM EDT [facility] Comment:Phencyclidine screen ing cut off value = 25 ng/mL CANNABINOIDS Negative Negative 12/25/2024 2:08 PM EDT [facility] Comment:Cannabinoids/THC scr eening cut off value = 50 ng/mL Urine Barbiturates Negative Negative 2024 2:08 PM EDT [facility] Comment:Barbiturates screeni ng cut off value = 200 ng/mL BENZODIAZEPINES Negative Negative 2:08 PM EDT [facility] Comment:Benzodiazepines scre ening cut off value = 200 ng/mL Urine Collection / Unknown 12/25/2024 8:16 AM EDT 12/25/2024 8:18 AM EDT Ernestine Hopkins NURSE CLINICIAN-[employer] URINE ORDERABLES Final R esult Performing Organization Address City/[facility] [address]/ZIP Co de Phone Number [facility] [address] [place] [address], [place] [phone] * Urine culture (12/25/2024 8:16 AM EDT) CULTURE RESULTS NO GROWTH AT <1000 CFU/mL 12/26/2024 8:21 AM EDT [facility] Urine Urine specimen collection, clean catch / Unknown Collection / Unknown 12/25/2024 8:16 AM EDT 12/25/2024 8:18 AM EDT Narrative [facility] - 12/26/2024 8:21 AM EDT Urine received without preservative - delays in transport may affect results. Interpret with caution and clinical correlation is recommended. us Ernestine Hopkins NURSE CLINICIAN-[employer] MICROBIOLOGY - GENERAL O RDERABLES Final Result [facility] [address] [place] [address], [place] [phone] * Urinalysis (12/25/2024 8:16 AM EDT) COLOR Yellow Yellow 12/25/2024 1:41 PM EDT [facility] TURBIDITY Clear Clear 12/25/2024 1:41 PM EDT [facility] SPECIFIC GRAVITY 1.020 1.003 - 1.035 12/25/2024 1:41 PM EDT [facility] NITRITE Negative Negative 12/25/2024 1:41 PM EDT [facility] PH,URINE 5.5 5.0 - 8.5 12/25/2024 1:41 PM EDT [facility] LEUKOCYTE ESTERASE Negative Negative 12/25/2024 1:41 PM EDT [facility] PROTEIN Negative Negative 12/25/2024 1:41 PM EDT [facility] KETONES (URINE) Negative Negative 1:41 PM EDT [facility] UROBILINOGEN <1.1 eu/dL <1.1 eu/dL 12/25/2024 1:41 PM EDT [facility] BILIRUBIN (URINE) Negative Negative 12/25/2024 1:41 PM EDT [facility] BLOOD/HGB Negative Negative 12/25/2024 1:41 PM EDT [facility] GLUCOSE (URINE) Negative Negative 1:41 PM EDT [facility] Urine Urine / Unknown Collection / Unknown 12/25/2024 8:16 AM EDT 12/25/2024 8:18 AM EDT Narrative [facility] - 12/25/2024 1:41 PM EDT Urine received without preservative. Delays in transport may affect results. Interpret with caution. A clinical correlation is recommended. us Ernestine Hopkins NURSE CLINICIAN-[employer] URINE ORDERABLES Final R esult [facility] [address] [place] [address], [place] [phone] documented in this encounter Visit Diagnoses Diagnosis care, first trimester- Primary Obesity in Obesity complicating , childbirth, or the puerperium, unspecified as to episode of care or not applicable documented in this encounter Additional Health Concerns Assessment Noted Time PHQ-9 Depression Total Score: 15 08/01/ 024 2:12 PM EDT A Body Mass Index follow-up plan has been documented for the patient 08/06/2023 1:12 PM EDT documented as of this encounter
--- OUTSIDE RECORDS SUMMARY | 2025-01-01 10:24 | XMS_ITS ---
[...] Unknown Unavailab le BRIEN, MEGAN Mother Unknown [phone] BRIEN, MEGAN Mother Unknown [phone] BEDDOW, LAURA Significant Other Unknown Unavailab [place] [address] [phone] BRIEN, MEGAN Mother Unknown [phone] BRIEN, MEGAN Mother Unknown [phone] BEDDOW, LAURA Significant Other Unknown Unavailab [place] [address] [phone] BRIEN, MEGAN Mother Unknown [phone] BRIEN, MEGAN Mother Unknown [phone] BEDDOW, LAURA Significant Other Unknown Unavailab [place] [address] [phone] Care Team Providers 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 01/01/2025 Unknown Encounter for supervision of normal , unspecified, first trimester / Z34.91(ICD-10) [facility]EVY SY[facility] 01/01/2025 Unknown Encounter for gynecological examination (general) (routine) without abnormal findings / Z01.419(ICD-10) LEVY SYKES [facility] 01/01/2025 Unknown Initial Visit / FREETEXT(AOF) LEVY SYKES [facility] 12/15/2024 Unknown Threatened abort ion / O20.0(ICD-10) [facility] 12/09/2024 Unknown Other specified diseases and conditions complicating / O99.891(ICD-10) [facility] 12/09/2024 Unknown Dorsalgia, unspe cified / M54.9(ICD-10) [facility] 12/09/2024 Unknown Hemorrhage in ea rly , unspecified / O20.9(ICD-10) [facility] 12/09/2024 Unknown Other specified related conditions, first trimester / O26.891(ICD-10) [facility] 12/09/2024 Unknown Unspecified abdo catherine pain / R10.9(ICD-10) [facility] 10/19/2024 Unknown Chronic cough / R05.3(ICD-10) ELY REEVES [facility] 10/19/2024 Unknown Cough / FREETEXT(AOF) ELY REEVES [facility] 08/05/2024 Unknown Periapical absce ss without sinus / K04.7(ICD-10) [facility] 08/05/2024 Unknown Other specified disorders of teeth and supporting structures / K08.89(ICD-10) [facility] 08/05/2024 Unknown Localized swelli ng, mass and lump, head / R22.0(ICD-10) [facility] 08/05/2024 Unknown Dental Pain / FREETEXT(AOF) [facility] 04/08/2024 Unknown Amenorrhea, unsp ecified / N91.2(ICD-10) CRIS, KADE L [facility] 04/08/2024 Unknown Amenorrhea / FREETEXT(AOF) CRIS KADE L [facility] 04/02/2024 Unknown Acute bronchitis , unspecified / J20.9(ICD-10) GUMARO WATKINS [facility] 04/02/2024 Unknown Cold Like Sympto ms / FREETEXT(AOF) GUMARO WATKINS [facility] 02/06/2024 Unknown Phlebitis and thrombophlebitis of unspecified site / I80.9(ICD-10) [facility] 02/06/2024 Unknown Leg Pain / FREETEXT(AOF) NA Acti [facility] 02/06/2024 Unknown Wound Check, Leg Pain / UNK(Unknown) NA Active [facility] PROCEDURES No Procedure Records Found VITAL SIGNS No Vital Signs Records Found RESULTS CHLAMYDIA/GONORRHOEAE BY PCR , FLUID Observed: 01/01/2025 11:36 AM Status: COMPLETED Source: [facility] CHLAMYDIA PCR, [place] Negative Chlamydia trachomatis not detected by nucleic acid amplification. This does not exclude the possibility of infection because results are dependent on adequate specimen collection. GONORRHOEAE PCR, [place] Negative Neisseria gonorrhoeae not detected by nucleic acid amplification. This does not exclude the possibility of infection because results are dependent on adequate specimen collection. Performed By: #### CGTPCR ## ## [facility] ([facility]) [address] [place] [address] VIR HIGH RISK HPV W/HEIDI Collected: 11:36 AM Status: COMPLETED Source: [facility] TYPE CODE TESTS RESULT OUT OF RANGE REFERENCE UNITS LAB HPV16 HPV 16 Positive Abnormal Negative LAB HPV18 HPV 18 Negative Negative LAB HRHPV OTHER HIGH RISK HPV Negative Negative Result Comment: HPV types 31 , 33, 35, 39, 45, 52, 56, 58, 59, 66, and 68 DNA were undetectable. Performed By: #### HPV #### [facility] ([facility]) [address] [place] [address] VIR THIN PREP PAP TEST Observed: 01/01/2025 11:36 AM Status: COMPLETED Source: [facility] Gynecologic Cytology Report Case: [id number] Authorizing Provider: MARTHA Og Collected: 01/01/2025 1136 Ordering Location: [facility] Received: 01/01/2025 1136 Obstetrics/Gynecology First Screen: ELVIN Torres(ASCP) Pathologist: Randy Heard MD Specimen: Thin Prep Pap, Cervix/Endocervix Satisfactory for evaluation, endocervical/transformation zone component present SQUAMOUS EPITHELIAL CELL ABNORMALITY HIGH GRADE SQUAMOUS INTRAEPITHELIAL LESION at 1418 EDT The Pap test is a screening test with an inherent, but low, probability of error. The Pap test is primarily effective for the diagnosis and prevention of squamous cell carcinoma. Regular screening is critical for prevention. ThinPrep liquid-based slides, which meet the Aircraft Refueler criteria for automated screening, have been screened by the [employer] Imaging System (as of 12/24/06) along with an additional manual rescreening by a shipper and, if indicated, by a pathologist. screening Performed By: #### TPT #### [facility] ([facility]) [address] [place] [address] VIR GLUCOSE TOLERANCE, 3 HOURS Collected: 0 12/29/2024 11:27 AM Status: COMPLETED Source: [facility] TYPE CODE TESTS RESULT OUT OF RANGE REFERENCE UNITS LAB GLU3 GLUCOSE TOLERANCE TEST, 3 HOUR 141 High 65-99 mg/dL Performed By: #### GLU3 #### [facility] ([facility]) [address] [place] [address] [place] [address] VIR SECOND HOUR GLUCOSE TOLERANC E 100 GM LOAD Collected: 12/29/2024 10:25 AM Status: COMPLETED Source: [facility] Order Comment: 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 Workshop Conference: Recommendations and Rationale [...] mg/dL Performed By: #### 100GT2 ## ## [facility] ([facility]) [address] [place] [address] [address] [place] [address] VIR GLUCOSE TOLERANCE, 1 HOUR Collected: 12/29/2024 9:24 AM Status: COMPLETED Source: [facility] TYPE CODE TESTS RESULT OUT OF RANGE REFERENCE UNITS LAB GLU1 GLUCOSE TOLERANCE TEST, 1 HOUR 197 High 120-170 mg/dL Performed By: #### GLU1 #### [facility] ([facility]) [address] [place] [address] [address] [place] [address] VIR GLUCOSE TOLERANCE, FASTING Collected: 8:20 AM Status: COMPLETED Source: [facility] TYPE CODE TESTS RESULT OUT OF RANGE REFERENCE UNITS LAB GLUF GLUCOSE TOLERANCE TEST, FASTING 85 65-99 mg/dL Performed By: #### GLUF #### [facility] ([facility]) [address] [place] [address] VIR CBC (NO DIFF) Collected: 12/25/2024 8:51 AM S tatus: COMPLETED Source: [facility] TYPE CODE TESTS RESULT OUT OF [...] 7-12 fL Performed By: #### CBC #### [facility] ([facility]) [address] [place] [address] VIR GLU 1H POST 50G LOAD Collected: 12/25/2024 8:51 AM Status: COMPLETED Source: [facility] TYPE CODE TESTS RESULT OUT OF RANGE REFERENCE UNITS LAB GL1 GLUCOSE, 1HR POST 50GM LOAD 163 High 65-139 mg/dL Performed By: #### GL1 #### [facility] ([facility]) [address] [place] [address] VIR TYPE AND SCREEN Collected: 12/25/2024 8:51 AM Status : C Source: [facility] TYPE CODE TESTS RESULT OUT OF RANGE REFERENCE UNITS LAB ABO_INTEP ABO_INTEP A LAB RH_INTEP RH_INTEP Positive LAB ABSC_INTEP ANTIBODY SCREEN Negative Performed By: #### TSC #### [facility] ([address] [address] VIR SICKLE SOLUBILITY Collected: 12/25/2024 8:51 AM Status: COMPLETED Source: [facility] TYPE CODE TESTS RESULT OUT OF RANGE REFERENCE UNITS LAB SIKL SICKLE SOLUBILITY Negative Negative Performed By: #### SIKL #### [facility] ([facility]) [address] [place] [address] VIR HIV 1 AND 2 AB/AG SCREEN (P2 4 AG) Collected: 12/25/2024 8:51 AM Status: COMPLETED Source: [facility] Order Comment: This informat ion has [...] Non-Reactive Non-Reactive Performed By: #### HIV4 #### [facility] ([facility]) [facility] [address] [place] [address] VIR HEPATITIS PANEL, ACUTE Collected: 12/25/2024 8: 51 AM Status: COMPLETED Source: [facility] TYPE CODE TESTS RESULT OUT OF RANGE REFERENCE UNITS LAB HBAG HEPATITIS B SURF AG Non-Reactive Non-Reactive LAB HAVM HEPATITIS A IGM Non-Reactive Non-Reactive LAB HBCM HEPATITIS B CORE IGM Non-Reactive Non-Reactive LAB HCV ANTI HCV W/PCR REFLX Non-Reactive Non-Reactive Result Comment: If recent in fection suspected, recommend repeat testing (>2 months). Bboado-fb-hcmmps ratio is <1.0. Performed By: #### AHP #### [facility] ([facility]) [address] [place] [address] VIR RUBELLA ANTIBODY, IGG Collected: 2024 8:51 AM Status: COMPLETED Source: [facility] Order Comment: Interpretatio n < 8 NEGATIVE - considered not immune. 8 - 9 EQUIVOCAL - consider retesting with new specimen. > 9 POSITIVE - considered immune. TYPE CODE TESTS RESULT OUT OF RANGE REFERENCE UNITS LAB RUBE RUBELLA IGG 26 <9 IU/mL Performed By: #### RUBG #### [facility] ([facility]) [address] [address] VIR SYPHILIS TOTAL(UNKNOWN SYPHI LIS STATUS) Collected: 12/25/2024 8:51 AM Status: COMPLETED Source: [facility] Order Comment: NON REACTIVE No serologic evidence of infection to Treponema pallidum. Repeat testing may be considered in patients with suspected acute or primary syphilis in 2 to 4 weeks. TYPE CODE TESTS RESULT OUT OF RANGE REFERENCE UNITS LAB SYPHT SYPHILIS TOTAL <^0.2 <=0.8 AI Performed By: #### SYPHT ### # [facility] ([facility]) [address] [place] [address] VIR VARICELLA ZOSTER ANTIBODY, IGG Collected: 12/25 8:51 AM Status: COMPLETED Source: [facility] Order Comment: Intepretation < 0.9 Negative 0.9 - 1.0 Equivocal > 1.0 Positive TYPE CODE TESTS RESULT OUT OF RANGE REFERENCE UNITS LAB VZVG VARICELLA IGG 0.7 <1.0 AI Performed By: #### VZVG #### [facility] ([facility]) [address] [place] [address] VIR URINALYSIS Collected: 12/25/2024 8:16 AM S tatus: COMPLETED Source: [facility] Order Comment: Urine receive d without [...] Negative Negative Performed By: #### UA #### [facility] ([facility]) [address] [place] [address] VIR DRUG SCREEN, URINE Collected: 12/25/2024 8:16 AM Sta tus: COMPLETED Source: [facility] TYPE CODE TESTS RESULT OUT OF [...] 200 ng/mL Performed By: #### DSU #### [facility] ([facility]) [address] [place] [address] VIR URINE CULTURE Observed: 12/25/2024 8:16 AM Status: COMPLETED Source: [facility] Order Comment: Urine receive d without preservative - delays in transport may affect results. Interpret with caution and clinical correlation is recommended. CULTURE RESULTS NO GROWTH AT <1000 CFU/mL Performed By: #### UC #### [facility] ([facility]) [address] [place] [address] VIR HCG-BETA, SERUM Collected: 10:01 AM Status: COMPLETED Source: [facility] Order Comment: WEEKS (SINCE LMP) MIU/mL [...] 6392 mIU/mL Performed By: #### HCG #### [facility] ([facility]) [address] [place] [address] VIR US PREG LESS THAN 14 WKS WITH TRANSVAGINAL Observed: 12/15/2024 8:59 AM Status: COMPLETED Source: [facility] US PREG LESS THAN 14 WKS [...] sac. Yolk sac: 0.1 cm (suboptimally visualized) Exeland-rump length (CRL): 0.7 cm corresponding to a [...] SERUM Collected: 8:15 AM Status: COMPLETED Source: [facility] Order Comment: WEEKS (SINCE LMP) MIU/mL [...] 3961 mIU/mL Performed By: #### HCG #### [facility] ([facility]) [address] [place] [address] VIR HCG-BETA, SERUM Collected: 7:53 AM Status: COMPLETED Source: [facility] Order Comment: WEEKS (SINCE LMP) MIU/mL [...] 2789 mIU/mL Performed By: #### HCG #### [facility] ([facility]) [address] [place] [address] VIR US PREG LESS THAN 14 WKS WITH TRANSVAGINAL Observed: 12/10/2024 2:10 PM Status: COMPLETED Source: [facility] US PREG LESS THAN 14 WKS [...] SERUM Collected: 8:11 AM Status: COMPLETED Source: [facility] Order Comment: WEEKS (SINCE LMP) MIU/mL [...] 1982 mIU/mL Performed By: #### HCG #### [facility] ([facility]) [address] [place] [address] VIR TYPE AND SCREEN Collected: 12/06/2024 8:16 AM Status : C Source: [facility] TYPE CODE TESTS RESULT OUT OF RANGE REFERENCE UNITS LAB ABO_INTEP ABO_INTEP A LAB RH_INTEP RH_INTEP Positive LAB ABSC_INTEP ANTIBODY SCREEN Negative Performed By: #### TSC #### [facility] ([facility]) [address] [facility] [place] [address] VIR HCG-BETA, SERUM Collected: 8:11 AM Status: COMPLETED Source: [facility] Order Comment: WEEKS (SINCE LMP) MIU/mL [...] 738 mIU/mL Performed By: #### HCG #### [facility] ([facility]) [address] [place] [address] VIR XR CHEST 2 VWS Observed: 10/19/2024 12:52 AM Status: COMPLETED Source: [facility] XR CHEST 2 VWS History: Cough Exam/Technique: PA and lateral chest Comparison: 04/02/2024 Findings: There is no evidence of active pulmonary or pleural disease. Cardiac and mediastinal contours are within normal limits. IMPRESSION: Normal chest radiographs. Finalized by Ángel Posadas MD on 10/19/2024 12:54 AM XR CHEST 1 VW Observed: 04/02/2024 7:32 PM Status: COMPLETED Source: [facility] XR CHEST 1 VW XR CHEST [...] Observed: 04/02/2024 7:25 PM Status: COMPLETED Source: [facility] FLU A PCR Positive (qualifier value) [...] operators who are performing tests using either [facility] or [facility] systems and is limited to laboratories that [...] specimen repeat. Fact Sheet for Healthcare Providers: https://www.fda.gov/media/630700/download Fact Sheet for Patients: https://www.fda.gov/media/311230/download Performed By: #### COVFLR ## ## [facility] ([id number]) [address] [place] [address] D DIMER Collected: 4 3:45 PM Status: COMPLETED Source: [facility] TYPE CODE TESTS RESULT OUT OF [...] if the patient's symptoms persist or worsen. [email or web address] Performed By: #### [id number] # ### [facility] ([id number]) [address] [place] [address] ALLERGIES DATE TYPE / CODE NAME / CODE REACTION SEVERITY SOURCE 01/20/2017 DRUG INGREDI~NON-CBORD/41 [id number](SNOMED CT) TRAMADOL Anxiety Low [facility] ENCOUNTERS ADMIT/DISCHARGE ACCOUNT NUMBER ADMITTING ENCOUNTER CLASS LOCATION SOURCE 01/01/2025/ 5 [id number] Ambulatory Buildin 18 [facility] 12/29/2024 [id number] Ambulatory Building: M _LAB [facility] 12/25/2024 [id number] Ambulatory Building: M _LAB [facility] 12/23/2024/ 5 [id number] Ambulatory Buildin 18 [facility] 12/15/2024 [id number] Ambulatory Building:PF C _LAB [facility] 12/15/2024/ 5 [id number] Ambulatory Building:[facility] _US [facility] 12/13/2024 [id number] Ambulatory Building: M _LAB [facility] 12/11/2024 [id number] Ambulatory Building: M _LAB [facility] 12/10/2024/ 5 [id number] Ambulatory Building:[facility] _US [facility] 12/09/2024 [id number] Ambulatory Building: M _LAB [facility] 12/06/2024 [id number] Ambulatory Building: M LAB [facility] 12/06/2024 [id number] Ambulatory Building: M _LAB [facility] 10/19/2024/ 5 [id number] Emergency Building:PFM _EDRoom: 2Bed: 02 [facility] 08/05/2024/ 5 [id number] Emergency Building:PFM _EDRoom: 13Bed: 13 [facility] 04/08/2024/ 4 [id number] Ambulatory Buildin 18 [facility] Ambulatory [facility] 04/02/2024/ 4 [id number] Emergency Building:PFM _EDRoom: 4Bed: 04 [facility] 02/06/2024/ 4 [id number] Emergency Building:PFM _EDRoom: H2Bed: H2 [facility] FUNCTIONAL STATUS No Functional Status Records Found EQUIPMENT No Equipment Records Found PAYERS ENCOUNTER GUARANTOR PAYER SUBSCRIBER SOURCE 01/01/2025 LAURY BROWN: [id number] [address] [address]Gxg: () Primary Insurance:BCBS OUT OF STATE PPO/TRUSTPolicy Number: [id number] tive Date:2023-04-09 LAURY BROWN: [id number] [address] [place] [address]Nii: (WP) [facility] 12/29/2024 [facility]: [address] [place] [address]Aop: (HP) Primary Insurance:BCBS OUT OF STATE PPO/TRUSTPolicy Number: [id number] tive Date:2023-04-09 [facility] [id number], [place] [address]Stg: (WP) [facility] 12/25/2024 [facility] [address], [place] [address]Qwr: (HP) Primary Insurance:BCBS OUT OF STATE PPO/TRUSTPolicy Number: [id number] tive Date:2023-04-09 [facility]Y [facility]: [id number] [address], [place] [address]Ncf: (WP) [facility] 12/23/2024 [facility]: [address], [place] [address]Boz: (HP) Primary Insurance:BCBS OUT OF STATE PPO/TRUSTPolicy Number: [id number] tive Date:2023-04-09 LAURY [facility]: [id number] [address], [place] [address]Pds: (WP) [facility] 12/15/2024 [facility]: [address] [place] [address]Qmz: (HP) Primary Insurance:BCBS OUT OF STATE PPO/TRUSTPolicy Number: [id number] tive Date:2023-04-09 [facility]: [id number] [address], [place] [address]Gwl: (WP) [facility] 12/15/2024 [facility] [address], [place] [address]Dtv: (HP) Primary Insurance:BCBS OUT OF STATE PPO/TRUSTPolicy Number: [id number] tive Date:2023-04-09 [facility]: [id number] [address], [place] [address]Zlq: (WP) [facility] 12/13/2024 [facility] [address], [place] [address]Cro: (HP) Primary Insurance:BCBS OUT OF STATE PPO/TRUSTPolicy Number: [id number] tive Date:2023-04-09 [facility]: [id number] [address], [place] [address]Jsz: (WP) [facility] 12/11/2024 [facility] [address], [place] [address]Mrg: (HP) Primary Insurance:BCBS OUT OF STATE PPO/TRUSTPolicy Number: [id number] tive Date:2023-04-09 [facility]: [id number] [address], [place] [address]Sng: (WP) [facility] 12/10/2024 [facility] [address], [place] [address]Xyb: (HP) Primary Insurance:BCBS OUT OF STATE PPO/TRUSTPolicy Number: [id number] tive Date:2023-04-09 LAURY COLEMANB: [id number] [address] [address]Wti: (HP) (WP) [facility] 12/09/2024 [facility]: [address] [address]Tuw: (HP) Primary Insurance:BCBS OUT OF STATE PPO/TRUSTPolicy Number: [id number] tive Date:2023-04-09 LAURY COLEMANB: [id number] [address] [address]Ioh: (WP) [facility] 12/06/2024 LAURY POWELLB: [address] [address]Thr: (HP) Primary Insurance:BCBS OUT OF STATE PPO/TRUSTPolicy Number: [id number] tive Date:2023-04-09 LAURY COLEMANB: [id number] [address] [address]Lsm: (HP) (WP) [facility] 12/06/2024 LAURY POWELLB: [address] [address]Swa: (HP) Primary Insurance:BCBS OUT OF STATE PPO/TRUSTPolicy Number: [id number] tive Date:2023-04-09 LAURY POWELLB: [id number] [address] [address]Pul: (HP) (WP) [facility] 10/19/2024 LAURY COLEMANB: [address] [address]Evp: (HP) Primary Insurance:BCBS OUT OF STATE PPO/TRUSTPolicy Number: [id number] tive Date:2023-04-09 LAURY COLEMANB: [id number] [address] [address]Fxm: (HP) (WP) [facility] 08/05/2024 LAURY POWELLB: [address] [address]Rhn: (HP) Primary Insurance:BCBS OUT OF STATE PPO/TRUSTPolicy Number: [id number] tive Date:2023-04-09 LAURY COLEMANB: [id number] [address] [address]Rpe: (HP) (WP) [facility] 04/08/2024 LAURY COLEMANB: [address] [address]Tjj: (HP) Primary Insurance:BCBS OUT OF STATE PPO/TRUSTPolicy Number: [id number] tive Date:2023-04-09 LAURY COLEMANB: [id number] [address] [place] [address]Lqf: (HP) (WP) [facility] 04/02/2024 LAURY COLEMANB: [address] [address]Oyi: (HP) Primary Insurance:BCBS OUT OF STATE PPO/TRUSTPolicy Number: [id number] tive Date:2023-04-09 [facility] [id number] [address] [address]Add: (HP) (WP) [facility] 02/06/2024 [facility] [id number] [address] [address]Eki: (HP) Primary Insurance:[facility] OUT OF STATE PPO/TRUSTPolicy Number: [id number] tive Date:2023-04-09 LAURY STOREYLOS GATOS CAMPUSB: [id number] [address] [address]Jll: (HP) (WP) [facility] SOCIAL HISTORY No Social History Records Found FAMILY HISTORY No Family History Records Found ADVANCE DIRECTIVES No Advanced Directives Records Found INFORMATION SOURCE DATE CREATED AUTHOR AUTHOR'S CARLOS ATION 01/05/2025 OHIP
--- OUTSIDE RECORDS SUMMARY | 2025-01-01 10:30 | XMS_ITS | Encounter Summary ---
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 Patient is currently 9w Encounter Details Date Type Department Care Team (Late st Contact Info) Description 01/01/2025 10:30 AM EDT Initial [facility] Obstetrics/Gynecology [address] [facility] [address] [place] [id number] Ernestine Hopkins, IMAGING TECHNICIAN-ROUNDING MACHINE OPERATOR [address] [place], [place] [id number] GA: 9w0d Social History Tobacco Use Types Packs/Day Years Used Date Smoking Tobacco: Some Days Cigarettes 0.5 13 Smokeless Tobacco: Never Tobacco Cessation:Ready to Q uit: Not Asked; Counseling Given: Not Answered Alcohol Use Standard Drinks/Week Comments Yes 0 (1 standard drink = 0.6 oz pur e alcohol) OCCASIONAL Overall Financial Resource Strain (CARDIA) Answe r Date Recorded How hard is it for you to pa y for the very basics like food, housing, medical care, and heating? Not very hard 01/01/2025 PHQ-2 Answer Date Recorded Total Score 3 01/01/2025 Housing Instability Answer Date Recorde d Are you worried or concerned that in the next two months you may not have stable housing that you own, rent or stay in as a part of a household? No 01/01/2025 Childcare Answer Date Recorded Do problems getting child ca re make it difficult for you to work or study? No 01/01/2025 Employment Answer Date Recorded Employment Unknown 09/18/2018 Hunger Screening Answer Date Recorded Within the past 12 months we worried whether our food would run out before we got money to buy more. Never True 01/01/2025 Within the past 12 months th e food we bought just didn't last and we didn't have money to get more. Never True 01/01/2025 Purpose - Life Answer Date Recorded Purpose [...] Sign Reading Time Taken Comments Blood Pressure 116/76 01/01/2025 10:30 AM EDT Pulse - - Temperature - - Respiratory Rate - - Oxygen Saturation - - Inhaled Oxygen Concentration - - Weight 87.4 kg (192 lb 9.6 oz) 01/01/2025 10:30 AM EDT Height - - Body Mass Index 35.23 10/19/2024 12:25 AM EDT documented in this encounter Patient Instructions * Patient Instructions* Ernestine Hopkins, ALKA-ROUNDING MACHINE OPERATOR - 01/01/2025 10:30 AM EDT What is gestational diabetes? This is a form of diabetes that affects some people during . Like regular diabetes, it affects how the body uses sugar. All the cells in the body need sugar to work normally. Sugar gets into the cells with the help of ahormone called insulin. If there is not enough insulin, or if the body stops responding to insulin,sugar builds up in the blood. That is what happens to people with diabetes. increases the body's need for insulin, but the body cannot always make enough. This is what causes gestational diabetes in some people. Most of the time, the diabetes goes away after the person is no longer . What problems can gestational diabetes cause? Many of the problems that can happen are related to having high blood sugar levels during . For example: ?Your baby can get too big (heavier than 9 pounds, or about 4 kilograms). This is a problem, because a big baby can get hurt if they cannot fit easily through the canal. Giving to a big baby can also cause tearing around the vagina. Babies born to mothers with gestational diabetes might also be at higher risk of having excess bodyweight later in life. ?Right after , your baby can have blood sugar levels that are too low. Babies can sometimes have other health problems, too. ?Gestational diabetes also increases your risk of preeclampsia. This is a serious problem that can happen during . It causes high blood pressure and other problems. How is gestational diabetes treated? The goal of treatment is to keep your blood sugar from getting too high. To do this, you need to check your blood sugar often. You can do this on your own with an easy-to-use machine. Your doctor or nurse will teach you how to do this and what your blood sugar level should be. If your blood sugar level is high, treatment can include: ?Diet changes - Most people can manage their blood sugar by changing what they eat and drink. It can help to work with a registered dietitian (food expert). They can teach you how to change your dietand make sure you get the right nutrition for you. Everyone is different, so there is no single diet that is right for everyone. In general, most people should: Avoid sweets, sugary drinks, and fatty foods. Choose bread, pasta, and rice made with whole grains. ?Exercise - Daily exercise helps manage your blood sugar and weight. If you already exercise, you can usually keep doing what you have been doing or possibly increase your physical activity. If you have not been exercising and want to start, ask your doctor or nurse what kind of activity is safe for you. Even gentle forms of exercise like walking can help your health. ?Medicines - Some people also need insulin shots or other diabetes medicines. How often do I need to see the doctor or nurse? If you have gestational diabetes, you need to see your doctor or nurse more often than other people. How often you go depends on how you are doing at each visit, and on whether you use insulin. During these visits, the doctor or nurse will: ?Check on your baby ?Ask about your diet ?Make sure your blood sugar levels are well managed ?Adjust your dose of insulin or other medicines Can I have a vaginal ? Chances are good you can have a vaginal , especially if your blood sugar levels have been close to normal. But if your baby is very big, you might need to have a (also called a ). This is surgery to get the baby out. The goal is to avoid problems like the baby getting stuck on the way out. What happens after I give ? Your diabetes will probably go away, and your blood sugar will probably go back to normal. If you were taking insulin or another medicine, you probably will not need it anymore. Even so, your doctor or nurse will check your blood sugar to make sure your levels get back to normal and stay normal. People who have gestational diabetes are at very high risk of getting regular diabetes later in life. Get checked for diabetes either when you are in the hospital after giving or 6 to 12 weeks later, then every few years for the rest of your life. * Attachments The following attachments cannot be sent through Care Everywhere. * Gestational diabetes (Ivorian) * Cell-free DNA screening (Ivorian) documented in this encounter Progress Notes * MARTHA Og - 01/01/2025 10:30 AM EDT Initial visit 34 y.o. at 9w0d. Telephone OB intake and video visit with provider done on 12/23/24. Patientdenies cramping or abdominal pain. She denies vaginal bleeding. Tolerating regular diet without emesis. Patient has not picked up blood sugar testing supplies yet, states she is waiting for the pharmacy to get the lancets in. She has an appt with diabetic ed next week. She is aware that additional labs have been ordered. Vitals: 01/01/25 1030 BP: 116/76 Weight: 87.4 kg (192 lb 9.6 oz) complicated by: Patient Active Problem List Diagnosis Major depressive disorder, recurrent Tobacco smoking affecting Obesity in Susceptible to varicella (non-immune), currently Diet controlled gestational diabetes mellitus 1. Reviewed ultrasound, EDC, labs and early danger signs. 2. Discussed genetic testing. Patient desires all. 3. physical complete and pap / cultures collected. 4. Patient desires flu shot at her next visit. 5. Educational information given. 6. Questions answered 7. RTO 2 weeks for NIPS / carrier screening and 4 weeks for visit. MARTHA Og 01/01/25 1111 documented in this encounter Plan of Treatment Upcoming Encounters Date Type Department Care Team (Late st Contact Info) Description 01/06/2025 8:15 AM EDT Office Visit [facility] Obstetrics/Gynecology [address] [facility] [address] [place] [phone] Kae Grant MD [address] [facility] [address] [place] [address] 01/26/2025 9:30 AM EDT Appointment [facility] - Ultrasound [address] [place] [phone] Kae Grant MD [address] [facility] [address] [place] [address] 03/12/2025 9:00 AM EST Office Visit [facility] Pulmonary/Sleep Medicine [address] [facility] [address] [place] [phone] [place] [address] [place] [id number] documented as of this encounter Procedures Procedure Name Priority Date/Time Associated Diagnosis Comments CHLAMYDIA/GONORRHO EAE BY PCR, FLUID Routine 01/01/2025 11:36 AM EDT Pap smear, as part of routine gynecological examination THIN PREP PAP TEST Routine 01/01/2025 11 :36 AM EDT Pap smear, as part of routine gynecological examination HIGH RISK HPV W/HEIDI Routine 01/01/2025 11:36 AM EDT Pap smear, as part of routine gynecological examination documented in this encounter Results * Chlamydia/Gonorrhoeae by PCR, Fluid (01/01/2025 11:36 AM EDT) CHLAMYDIA PCR, [place] Negative Negative 01/02/2025 12:58 PM EDT [facility] Comment:Chlamydia trachomati s not detected by nucleic acid amplification. This does not exclude the possibility of infection because results are dependent on adequate specimen collection. GONORRHOEAE PCR, [place] Negative Negative 01/02/2025 12:58 PM EDT [facility] Comment:Neisseria gonorrhoea e not detected by nucleic acid amplification. This does not exclude the possibility of infection because results are dependent on adequate specimen collection. Thin Prep (Cervix/Endocerv ix) 01/01/2025 11:36 AM EDT 01/02/2025 5:05 AM EDT Ernestine Hopkins IMAGING TECHNICIAN-ROUNDING MACHINE OPERATOR MICROBIOLOGY - GENERAL O RDERABLES Final Result [facility] [address] [place] [address], [place] [phone] * (ABNORMAL) High risk HPV w/heidi (01/01/2025 11:36 AM EDT) HPV 16 Positive(A) Negative 01/02/2025 2:10 PM EDT [facility] HPV 18 Negative Negative 01/02/2025 2:10 PM EDT [facility] OTHER HIGH RISK HPV Negative Negative 01/02/2025 2:10 PM EDT [facility] Comment:HPV types 31, 33, 35 , 39, 45, 52, 56, 58, 59, 66, and 68 DNA were undetectable. Thin Prep (Cervix/Endocerv ix) 01/01/2025 11:36 AM EDT 01/02/2025 5:05 AM EDT Ernestine Hopkins IMAGING TECHNICIAN-ROUNDING MACHINE OPERATOR LAB BLOOD ORDERABLES Fin al Result [facility] [address] [place] [address], * (ABNORMAL) Thin Prep Pap Test (01/01/2025 11:36 AM EDT) Case Report Gynecologic Cytology Report Case: [id number] Authorizing Provider: Ernestine Hopkins, IMAGING TECHNICIAN-ROUNDING MACHINE OPERATOR Collected: 01/01/2025 1136 Ordering Location: [facility] Received: 01/01/2025 1136 Obstetrics/Gy necology First Screen: ELVIN Torres(ASCP) Pathologist: Randy Heard MD Specimen: Thin Prep Pap, Cervix/Endocer vix 2:18 PM EDT [facility] Specimen Adequacy Satisfactory for evaluation, endocervical/t ransformation zone component present 2:18 PM EDT [facility] Interpretation SQUAMOUS EPITHELIAL CELL ABNORMALITY HIGH GRADE SQUAMOUS INTRAEPITHELIA L LESION(A) NEGATIVE FOR INTRAEPITHELIA L LESION OR MALIGNANCY, UNSATISFACTORY , EPITHELIAL CELL ABNORMALITY, GLANDULAR EPITHELIAL CELL ABNORMALITY. , SQUAMOUS EPITHELIAL CELL ABNORMALITY, NO DIAGNOSIS RENDERED. 2:18 PM EDT [facility] at 1418 EDT Additional Information The Pap test is a screening test with an inherent, but low, probability of error. The Pap test is primarily effective for the diagnosis and prevention of squamous cell carcinoma. Regular screening is critical for prevention. ThinPrep liquid-based slides, which meet the Proof Operator criteria for automated screening, have been screened by the ThinPrep Imaging System (as of 12/24/06) along with an additional manual rescreening by a cytotechnologi st and, if indicated, by a pathologist. 2:18 PM EDT [facility] Clinical Information screening 2:18 PM EDT [facility] Embedded Images 2:18 PM EDT [facility] Thin Prep (Cervix/Endocerv ix) 01/01/2025 11:36 AM EDT 01/01/2025 11:36 AM EDT us Ernestine Hopkins IMAGING TECHNICIAN-ROUNDING MACHINE OPERATOR PATHOLOGY/CYTOLOGY ORDER MARGO Final Result [facility] [address] [place] [address], [place] [phone] documented in this encounter Visit Diagnoses Diagnosis care, first trimester- Primary Pap smear, as part of routine gynecological examination Screening for malignant neoplasm of the cervix documented in this encounter Additional Health Concerns Assessment Noted Time PHQ-9 Depression Total Score: 3 01/02/20 25 10:31 AM EDT A Body Mass Index follow-up plan has been documented for the patient 08/06/2023 1:12 PM EDT documented as of this encounter
--- OUTSIDE RECORDS SUMMARY | 2025-01-05 21:37 | XMS_ITS | Encounter Summary ---
Author Organization [employer] Address [facility] [id number] [address] [place] [address] Care Team Providers Care Lsw Name Role Phone No Pcp, No Pcp Primary Care Provider Unavailabl e Encounter Details Date Type Department Care Team (Late st Contact Info) Description 12/05/2024 Telephone [facility] Obst[facility]Gynecology [address] [place] [address] Clau Mccarty CMA Social History Tobacco Use Types Packs/Day Years [...] Recorded Purpose and direction in life Unknown Comments Unknown Sex and Gender Information Value Date Recorded Sex Assigned at Not on file Legal Sex Female 11:45 AM EDT Gender Identity Not on file Sexual Orientation Not on file documented as of this encounter Miscellaneous Notes * Telephone Encounter - Clau Mccarty CMA - 12/05/2024 8:13 AM EDT Patient called stating they have had multiple positive tests. Patient is unsure of LMP due to them being irregular. She states she she had some spotting on 10/20/24 for 2 days. She did not have a period in August or September. She is concerned due to having cramping and back pain. She is scheduledfor her OBI on 12/23/24. Please advise. Thank you. - Clau Mccarty CMA 12/05/24 8:16 AM * Telephone Encounter - MARTHA Og - 12/05/2024 8:13 AM EDT Ultrasound and serial betas ordered. Patient should get a beta drawn today, Sunday, and Sunday. She can call [phone] to schedule her ultrasound. I have also ordered a type and screen to checkher blood type since she had some bleeding. Thank you. * Telephone Encounter - Clau Mccarty CMA - 12/05/2024 8:13 AM EDT Advised per note from Ernestine Hopkins CNP. documented in this encounter Plan of Treatment Upcoming Encounters Date Type Department Care Team (Late st Contact Info) Description 01/06/2025 8:15 AM EDT Office Visit [facility] Obstetrics/Gynecology [address] [place] [phone] Kae Grant MD [address] [place] [address] 01/26/2025 9:30 AM EDT Appointment [facility] - Ultrasound [address] [place] [phone] Kae Grant MD [address] [place] [address] 03/12/2025 9:00 AM EST Office Visit [facility] Pulmonary/Sleep Medicine [address] [place] [address] Carrie Mabry, DO [address] [address] documented as of this encounter Visit Diagnoses Not on filedocumented in this encounter Additional Health Concerns Assessment Noted Time PHQ-9 Depression Total Score: 15 08/01/2 024 2:12 PM EDT A Body Mass Index follow-up plan has been documented for the patient 08/06/2023 1:12 PM EDT documented as of this encounter Care Teams Lsw Relationship Specialty Start Date End Date No Pcp, [place] [address] PCP - General Family Medicine 12/06/24 12/22/24 documented as of this encounter
--- OUTSIDE RECORDS SUMMARY | 2025-01-05 21:37 | XMS_ITS | Encounter Summary ---
Author Organization [employer] Address [facility] [id number] [address] [place] [address] Care Team Providers Care Sample Sewer Name Role Phone Unavailable Primary Care Provider Unavailabl e Encounter Details Date Type Department Care Team (Late st Contact Info) Description 12/31/2024 Telephone [facility] Obstetrics/Gynecology [address] [place] [address] Danica Garza CO Social History Tobacco Use Types Packs/Day Years [...] encounter Miscellaneous Notes * Telephone Encounter - Danica Garza MA - 12/31/2024 1:12 PM EDT Patient called inquiring about their 3 hr GTT that was completed on 12/29/24. GTT showed it was 141.Patient was also inquiring about how often she should be checking her blood sugars. Patient stated after her 3 hr GTT she felt dizzy, hot, and shaky. Patient stated after eating she felt better and took a nap. Patient stated after her nap she had a severe headache. Patient stated she's been experiencing blurred vision and feeling like she is going to pass out. * Telephone Encounter - MARTHA Og - 12/31/2024 1:12 PM EDT Patient's one hour, two hour and three hour were all elevated. She should be checking her blood sugar first thing in the morning (fasting) and one hour after breakfast lunch and dinner. She should besure to drink 8-10 bottles of water per day and having a high protein snack between meals. We can discuss this further at her appointment tomorrow. She also has an appt next week with diabetic ed. Thank you. * Telephone Encounter - Danica Garza MA - 12/31/2024 1:12 PM EDT Called patient and informed of this information. Patient verbalized understanding. - Danica Garza MA 12/31/24 3:59 PM documented in this encounter Plan of Treatment Upcoming Encounters Date Type Department Care Team (Late st Contact Info) Description 01/06/2025 8:15 AM EDT Office Visit [facility] Obstetrics[facility]Gynecology [address] [place] [address] Kae Grant MD [address] [place] [address] 01/26/2025 9:30 AM EDT Appointment [facility] - Ultrasound [address] [place] [place] [phone] Kae Grant MD [address] [place] [address] 03/12/2025 9:00 AM EST Office Visit [facility] Pulmonary/Sleep Medicine [address] [place] [address] Carrie Mabry, DO [address] [place] [id number] documented as of this encounter Visit Diagnoses Diagnosis Obesity in Obesity complicating , childbirth, or the puerperium, unspecified as to episode of care or not applicable documented in this encounter Additional Health Concerns Assessment Noted Time PHQ-9 Depression Total Score: 15 024 2:12 PM EDT A Body Mass Index follow-up plan has been documented for the patient 08/06/2023 1:12 PM EDT documented as of this encounter
--- OUTSIDE RECORDS SUMMARY | 2025-01-05 21:37 | XMS_ITS | Encounter Summary ---
Author Organization [facility] [employer] s tem Address [facility] [id number] [address] [place] [address] Care Team Providers Care Underwriting Clerks Supervisor Name Role Phone Unavailable Primary Care Provider Unavailabl e Encounter Details Date Type Department Care Team (Late st Contact Info) Description 12/30/2024 Results Follow-Up [facility] - Lab [address] [place] [phone] Ernestine Hopkins, REHAB CARE ASSISTANT-FINANCIAL SERVICE REP [address] [place] [address] Glucose, tolerance fasting, Glucose tolerance, 1 hour, 2nd hr Glucose Tolerance 100 gm load, Glucose tolerance, 3 hours Social History Tobacco Use Types Packs/Day Years [...] on file documented as of this encounter Plan of Treatment Upcoming Encounters Date Type Department Care Team (Late st Contact Info) Description 01/06/2025 8:15 AM EDT Office Visit [facility] Obstetrics[facility]Gynecology [address] [place] [phone] Kae Grant MD [address] [facility] [place] [address] 01/26/2025 9:30 AM EDT Appointment [facility] - Ultrasound [address] [place] [address] Kae Grant MD [address] [facility] [place] [address] 03/12/2025 9:00 AM EST Office Visit [facility] Pulmonary/Sleep [facility] [address] [place] [phone] Carrie Mabry, DO [address] [address] documented as of this encounter Visit Diagnoses Not on filedocumented in this encounter Additional Health Concerns Assessment Noted Time PHQ-9 Depression Total Score: 15 024 2:12 PM EDT A Body Mass Index follow-up plan has been documented for the patient 08/06/2023 1:12 PM EDT documented as of this encounter
--- OUTSIDE RECORDS SUMMARY | 2025-01-05 21:37 | XMS_ITS | Encounter Summary ---
Author Organization [employer] Address [facility] [id number] [address] [place] [address] Care Team Providers Care Clay Dry Press Operator Name Role Phone Unavailable Primary Care Provider Unavailabl e Reason for Visit * Reason Onset Date Comments Vaginal Bleeding 01/03/2025 Encounter Details Date Type Department Care Team (Late st Contact Info) Description 01/03/2025 Telephone [facility] [address] [place] [phone] Makenzie Acnua Vaginal Bleeding Social History Tobacco Use Types Packs/Day Years Used Date Smoking Tobacco: Some Days Cigarettes 0.5 13 Smokeless Tobacco: Never Alcohol [...] encounter Miscellaneous Notes * Telephone Encounter - Makenzie Acuna - 01/03/2025 3:28 PM EDT Contract: 129 She is 9 weeks. She started spotting last night. It is getting heavier. * Telephone Encounter - Makenzie Acuna - 01/03/2025 3:28 PM EDT Contract: [address] Jama garcia and connected with [employer]. documented in this encounter Plan of Treatment Upcoming Encounters Date Type Department Care Team (Late st Contact Info) Description 01/06/2025 8:15 AM EDT Office Visit [facility] Obstetrics[facility]Gynecology [address] [phone] Kae Grant MD [address] [place] [address] 01/26/2025 9:30 AM EDT Appointment [facility] - Ultrasound [address] [place] [phone] Kae Grant MD [address] [place] [address] 03/12/2025 9:00 AM EST Office Visit [facility] Pulmonary/Sleep Medicine [address] [place] [phone] Carrie Mabry, DO [address] [place] [address] documented as of this encounter Visit Diagnoses Not on filedocumented in this encounter Additional Health Concerns Assessment Noted Time PHQ-9 Depression Total Score: 3 01/02/20 25 10:31 AM EDT A Body Mass Index follow-up plan has been documented for the patient 08/06/2023 1:12 PM EDT documented as of this encounter
--- OUTSIDE RECORDS SUMMARY | 2025-01-05 21:37 | XMS_ITS | Encounter Summary ---
Author Organization [employer] Address [facility] [id number] [address] [place] [address] Care Team Providers Care Electric Spot Welder Name Role Phone No Pcp, No Pcp Primary Care Provider Unavailabl e Encounter Details Date Type Department Care Team (Late st Contact Info) Description 10/20/2024 Telephone [facility] Pulmonary/Sleep Medicine [address] [phone] Claudio Paz Social History Tobacco Use Types Packs/Day Years [...] encounter Miscellaneous Notes * Telephone Encounter - Claudio Paz - 10/20/2024 2:05 PM EDT New patient scheduled 01/01/25 wSE @ [facility] for Chronic cough Please place CXR and PFT order * Telephone Encounter - Racheal Pena RN - 10/20/2024 2:05 PM EDT Orders placed Thanks * Telephone Encounter - HENRIETTA Savage - 10/20/2024 2:05 PM EDT Heading Up Machine Operator called patient, patient does not have a voicemail box set up, patient needs notified that she needs to have CXR and PFT completed prior to her appointment on 01/01/2025 [address] [facility] Heading Up Machine Operator placed orders in outgoing mail for patient. documented in this encounter Plan of Treatment Upcoming Encounters Date Type Department Care Team (Late st Contact Info) Description 01/06/2025 8:15 AM EDT Office Visit [facility] Obstetrics[facility]Gynecology [address] [facility] [phone] Kae Grant MD [address] [facility] [place] [address] 01/26/2025 9:30 AM EDT Appointment [facility] - Ultrasound [address] [place] [address] Kae Grant MD [address] [address] 03/12/2025 9:00 AM EST Office Visit [facility] Pulmonary/Sleep Medicine [address] [place] [phone] Carrie Mabry, DO [address] [address] Scheduled Orders Name Type Priority Associated Diagnoses Orde r Schedule X-ray chest 2 views Imaging Routine Cough, unspecified type Expected: 12/08/2024, Expires: 10/20/2025 Pulmonary function test Complete PFT w/ BD (Spirometry (Flow Volume Loop) pre/post short acting bronchodilator w/ DLCO (diffusion study) and Lung Volume) PFT Routine Cough, unspecified type Expected: 12/08/2024, Expires: 10/20/2025 documented as of this encounter Visit Diagnoses Diagnosis Cough, unspecified type- Primary documented in this encounter Additional Health Concerns Assessment Noted Time PHQ-9 Depression Total Score: 15 08/01/ 024 2:12 PM EDT A Body Mass Index follow-up plan has been documented for the patient 08/06/2023 1:12 PM EDT documented as of this encounter Care Teams Electric Spot Welder Relationship Specialty Start Date End Date No Pcp, [place] [address] PCP - General Family Medicine 12/06/24 12/22/24 documented as of this encounter
--- OUTSIDE RECORDS SUMMARY | 2025-01-05 21:37 | XMS_ITS | Encounter Summary ---
Author Organization [employer] Address [facility] [place]-[id number] [address] [place] [address] Care Team Providers Care Prop Worker Name Role Phone Unavailable Primary Care Provider Unavailabl e Encounter Details Date Type Department Care Team (Late st Contact Info) Description 12/26/2024 Orders Only [facility] Obstetrics/Gynecology [address] [facility] [place] [address] Ernestine Hopkins, LATHE OPERATOR CONTACT LENS-MEDICARE BILLER [address] [place], [place] [phone] with abnormal glucose tolerance test (Primary Dx) Social History Tobacco Use Types Packs/Day Years [...] Office Visit [facility] Obstetrics/Gynecology [address] [place] [phone] Kae Grant MD [address] [place] [address] 01/26/2025 9:30 AM EDT Appointment [facility] - Ultrasound [address] [place] [phone] Kae Grant MD [address] [place] [address] 03/12/2025 9:00 AM EST Office Visit [facility] Pulmonary/Sleep Medicine [address] [place] [phone] [place] [address] [place] [address] documented as of this encounter Visit Diagnoses Diagnosis with abnormal glucose tolerance test- Primary documented in this encounter Additional Health Concerns Assessment Noted Time PHQ-9 Depression Total Score: 15 024 2:12 PM EDT A Body Mass Index follow-up plan has been documented for the patient 08/06/2023 1:12 PM EDT documented as of this encounter
--- OUTSIDE RECORDS SUMMARY | 2025-01-05 21:37 | XMS_ITS | Encounter Summary ---
Author Organization [facility] [employer] s tem Address [facility] [id number] [address] [place] [address] Care Team Providers Care Scenic Designer Name Role Phone Unavailable Primary Care Provider Unavailabl e Encounter Details Date Type Department Care Team (Late st Contact Info) Description 12/26/2024 Results Follow-Up [facility] - Lab [address] [place] [phone] Ernestine Hopkins, TRUCK ASSEMBLER-HYDRAULIC BOOM OPERATOR [address] [place] [address] Urinalysis, Urine culture, Drug Screen, Urine, Additional followed-up results: 10 Social History Tobacco Use Types Packs/Day Years [...] Office Visit [facility] Obstetrics[facility]Gynecology [address] [place] [phone] Kae Grant MD [address] [place] [address] 01/26/2025 9:30 AM EDT Appointment [facility] - Ultrasound [address] [place] [phone] Kae Grant MD [address] [place] [address] 03/12/2025 9:00 AM EST Office Visit [facility] Pulmonary/Sleep Medicine [address] [place] [phone] Carrie Mabry, [address] [place] [address] documented as of this encounter Visit Diagnoses Not on filedocumented in this encounter Additional Health Concerns Assessment Noted Time PHQ-9 Depression Total Score: 15 024 2:12 PM EDT A Body Mass Index follow-up plan has been documented for the patient 08/06/2023 1:12 PM EDT documented as of this encounter
--- OUTSIDE RECORDS SUMMARY | 2025-01-05 21:37 | XMS_ITS | Encounter Summary ---
Author Organization [employer] Address [facility] [id number] [address] [place] [address] Care Team Providers Care Cotton Wringer Name Role Phone Unavailable Primary Care Provider Unavailabl e Encounter Details Date Type Department Care Team (Latest Contact Info) Description 12/29/2024 Travel Social History Tobacco Use Types Packs/Day Years [...] Office Visit [facility] Obstetrics/Gynecology [address] [place] [phone] Kae Grant MD [address] [facility] [place] [address] 01/26/2025 9:30 AM EDT Appointment [facility] - Ultrasound [address] [place] [phone] Kae Grant MD [address] [address] 03/12/2025 9:00 AM EST Office Visit [facility] Pulmonary/Sleep Medicine [address] [phone] Carrie Mabry, [address] [place] [address] documented as of this encounter Visit Diagnoses Not on filedocumented in this encounter Additional Health Concerns Assessment Noted Time PHQ-9 Depression Total Score: 15 024 2:12 PM EDT A Body Mass Index follow-up plan has been documented for the patient 08/06/2023 1:12 PM EDT documented as of this encounter
--- OUTSIDE RECORDS SUMMARY | 2025-01-05 21:37 | XMS_ITS | Clinical Summary ---
Author Organization [email or web address] Address [id number] [address] [place] [address] Care Team Providers Care Corporate Event Planner Name Role Phone Unavailable Primary Care Provider Unavailabl e Allergies Active Allergy Reactions Criticality Noted Date Comments Tramadol Anxiety Low 01/20/2017 Medications albuterol (PROVENTIL HFA;VENTOLIN HFA) 90 mcg/actuation inhaler Inhale 2 puffs every 6 (six) hours as needed for wheezing. Active albuterol (PROVENTIL,VENT TK) 2.5 mg /3 mL (0.083 %) nebulizer solutionIndicat ions:Chronic cough Inhale 3 mL (2.5 mg total) by nebulization every 6 (six) hours as needed for wheezing. 75 mL 10/20/19 25 Active 33-febf-yhevoi 9-dha 31 mg iron- 1 mg-200 mg capsuleIndicati ons: care, first trimester Take 1 capsule by mouth in the morning. 90 capsule 3 12/24/19 25 Active blood sugar diagnostic stripIndication s:Diet controlled gestational diabetes mellitus (GDM) in first trimester Use to check fasting blood sugar in the morning and one hour after first bite of each meal. Order supplies per insurance preference. 200 strip 3 12/31/19 25 Active lancets (onetouch ultrasoft) miscIndications :Diet controlled gestational diabetes mellitus (GDM) in first trimester Use to check fasting blood sugar in the morning and one hour after first bite of each meal. Order supplies per insurance preference. 200 each 3 12/31/19 25 Active blood-glucose meter miscIndications :Diet controlled gestational diabetes mellitus (GDM) in first trimester Use to check fasting blood sugar in the morning and one hour after first bite of each meal. Order supplies per insurance preference. 1 each 12/31/19 25 Active diphen-lidocain e-mag,al-simeth (FIRST-MOUTHWAS H BLM) [id number] mg/30mL mouthwash Swish and spit 5 mL 4 (four) times a day as needed for mouth/gum irritation. 237 mL 08/06/19 025 Discontin ued(Thera py completed ) Active Problems Problem Noted Date Diagnosed Date Susceptible to varicella (non-immune), currently 12/26/2024 Diet controlled gestational diabetes mellitus Tobacco smoking affecting 12/23/2024 Overview (12/23/2024): Encouraged cessation Obesity in 12/23/2024 Major depressive disorder, recurrent 08/06/2023 Estimated Date of Delivery Comme nts Yes 08/06/2025 Based on Ultraso und Resolved Problems Problem Noted Date Diagnosed Date Resolved Date Suicidal ideations 08/06/2023 5 Encounters Date Type Department Care Team Description 01/05/2025 Results Follow-Up [facility] Obstetrics/Gynecolo gy [address] [place] [address] Ernestine Hopkins, TALCER-CRANKSHAFT BALANCER Thin Prep Pap Test, High risk HPV w/yusra, Chlamydia/Gonorrhoea e by PCR, Fluid 01/03/2025 Telephone [facility] [place] [phone] Makenzie Acuna Vaginal Bleeding 01/01/2025 10:30 AM EDT Initial [facility] Obstetrics/Gynecolo gy [address] [place] [address] Ernestine Hopkins, TALCER-CRANKSHAFT BALANCER GA: 9w0d 01/01/2025 Travel 12/31/2024 Telephone [facility] Obstetrics/Gynecolo gy [address] [place] [address] Danica Garza MA 12/30/2024 Results Follow-Up [facility] [address] [place] [address] Ernestine Hopkins, TALCER-JOYCE Glucose, tolerance fasting, Glucose tolerance, 1 hour, 2nd hr Glucose Tolerance 100 gm load, Glucose tolerance, 3 hours 12/30/2024 Orders Only [facility] Ob[facility]etrics/Gynecolo gy [address] [place] [address] Ernestine Hopkins, TALCER-JOYCE Diet controlled gestational diabetes mellitus (GDM) in first trimester (Primary Dx) 12/29/2024 Travel 12/26/2024 Results Follow-Up [facility] [address] [place] [address] Ernestine Hopkins, TALCER-JOYCE Urinalysis, Urine culture, Drug Screen, Urine, Additional followed-up results: 10 12/26/2024 Orders Only [facility]/Gynecolo gy [address] [place] [address] Ernestine Hopkins, TALCER-JOYCE with abnormal glucose tolerance test (Primary Dx) 12/23/2024 8:30 AM EDT Telemedicine [facility] Obstetrics/Gynecolo gy [address] [place] [address] Ernestine Hopkins, TALCER-JOYCE care, first trimester (Primary Dx); Obesity in 12/23/2024 Results Follow-Up [facility]/Gynecolo gy [address] [place] [address] Ernestine Hopkins, TALCER-JOYCE Ultrasound less than 14 weeks with transvaginal 12/23/2024 Travel 12/22/2024 Travel 12/16/2024 Telephone [facility]/Gynecolo [facility] [address] [place] [address] Edilma Douglass RN 12/15/2024 8:59 AM EDT - 12/15/2024 11:59 PM EDT Hospital Encounter [facility] [address] [place] [phone] Threatened affecting intrauterine Discharge Disposition: Home 12/15/2024 Telephone [facility] LDRP [address] [place] [phone] Bridget Aguilar, TALCER-CNM 12/15/2024 [facility]phone [facility] [address] [place] [address] Maurice Mtz RN Vaginal Bleeding 12/15/2024 Results Follow-Up [facility] Obstetrics/Gynecolo gy [address] [place] [phone] Kae Grant MD HCG, Quantitative, 12/15/2024 Travel 12/10/2024 1:42 PM EDT - 12/10/2024 11:59 PM EDT Hospital Encounter [facility] Ultrasound [address] [place] [phone] Ernestine Hopkins, ALKA-CRANKSHAFT BALANCER Back pain affecting ; Bleeding in early ; Abdominal pain during in first trimester Discharge Disposition: Home 12/10/2024 Telephone [facility] Obstetrics/Gynecolo gy [address] [place] [phone] Bridget Aguilar, TALCER-CNM 12/10/2024 Travel 12/07/2024 Results Follow-Up [facility] Obstetrics/Gynecolo gy [address] [place] [phone] Bridget Aguilar, TALCER-EKMI Type and screen 12/07/2024 Telephone [facility] Obstetrics/Gynecolo gy [address] [place] [phone] Bridget Aguilar, TALCER-CNM 12/07/2024 Orders Only [facility] Obstetrics/Gynecolo gy [address] [place] [phone] Bridget Aguilar, TALCER-CNM 12/06/2024 Travel 12/05/2024 Orders Only [facility] Obstetrics/Gynecolo gy [address] [place] [phone] Ernestine Hopkins, TALCER-CRANKSHAFT BALANCER Back pain affecting (Primary Dx); Bleeding in early ; Abdominal pain during in first trimester 12/05/2024 Telephone [facility] Obstetrics/Gynecolo gy [address] [place] [address] Clau Mccarty CMA 10/20/2024 Telephone [facility] Pulmonary/Sleep Medicine [address] [phone] Claudio Paz 10/19/2024 12:19 AM EDT - 10/19/2024 1:46 AM EDT Emergency [facility] [address] [place] [address] Zeke Crandall DO Chronic cough (Primary Dx) Discharge Disposition: Home 10/19/2024 Travel from Last 3 Months Immunizations Immunization Administration Dates Next Due DTP 07/19/1994,09/12/1993,06/23/1993 ,06/15/1992 DTaP 01/21/1997 Hep B, Adolescent or Pediatric 07/19/1994,1993,06/23/1993,06/13/1993 HiB 06/23/1993,06/15/1992 IPV 01/21/2004 MMR 01/21/2004,01/21/1997,06/23/1993 OPV 01/21/1997,09/12/1993,06/23/1993 ,06/15/1992 Pneumococcal, Unspecified 10/03/2010 Tdap 09/25/2021,10/03/2010 Tetanus 01/21/2004 Family History Medical History Relation Name Comments Alcohol abuse Father Cirrhosis Father Mental illness Father Prostate cancer Maternal Uncle Asthma Mother Hypertension Mother Mental illness Mother Thyroid disease Mother Kidney failure Sister 1 Mental illness Sister 1 Clotting disorder Sister 2 Mental illness Sister 2 Asthma Son Mental illness Son Breast cancer Neg Hx Colon cancer Neg Hx Ovarian cancer Neg Hx Uterine cancer Neg Hx Relation Name Status Comments Brother Alive Father Alive Maternal Uncle Alive Mother Alive Sister 1 Alive Sister 2 Sister 3 Alive Son Alive Social History Tobacco Use Types Packs/Day Years [...] on file Sexual Orientation Not on file Last Filed Vital Signs Vital Sign Reading Time Taken Comments Blood Pressure 116/76 01/01/2025 10:30 AM EDT Pulse 102 10/19/2024 1:26 AM EDT Temperature 36.9 C (98.5 F) 10/19/2024 12:25 AM EDT Respiratory Rate 18 10/19/2024 1:26 AM EDT Oxygen Saturation 92% 10/19/2024 1:30 AM EDT Inhaled Oxygen Concentration - - Weight 87.4 kg (192 lb 9.6 oz) 01/01/2025 10:30 AM EDT Height 157.5 cm (5' 2 ) 10/19/2024 12:25 AM EDT Body Mass Index 35.23 10/19/2024 12:25 AM EDT Plan of Treatment Upcoming Encounters Date Type Department Care Team (Late st Contact Info) Description 01/06/2025 8:15 AM EDT Office Visit [facility] Obstetrics/Gynecology [address] [place] [phone] Kae Grant MD [address] [address] 01/26/2025 9:30 AM EDT Appointment [facility] Ultrasound [address] [place] [phone] Kae Grant MD [address] [place] [address] 03/12/2025 9:00 AM EST Office Visit [facility] Pulmonary/Sleep Medicine [address] [place] [phone] Carrie Mabry, [address] [place] [address] Health Maintenance Due Date Last Done Comments Tobacco Counseling 1991 Adult BMI Follow Up Plan 08/01/2024 08/02/2023 Influenza Vaccine 12/08/2024 Adult BMI Screening 01/01/2026 01/01/2025 Depression Screening 01/01/2026 01/01/2025 Tobacco Screening 01/01/2026 01/01/2025 Pap Smear 01/02/2028 01/01/2025, 12/09, 07/03/2016 DTaP,Tdap and Td Vaccines (8 - Td or Tdap) 09/26/2031 09/25/2021, 10/03/2010, 01/21/1997, Additional history exists Medical Devices Not on file Procedures Procedure Name Priority Date/Time Associated Diagnosis Comments THIN PREP PAP TEST Routine 01/01/2025 11 :36 AM EDT Pap smear, as part of routine gynecological examination HIGH RISK HPV W/YUSRA Routine 01/01/2025 11:36 AM EDT Pap smear, as part of routine gynecological examination CHLAMYDIA/GONORRHOEA E BY PCR, FLUID Routine 01/01/2025 11:36 AM EDT Pap smear, as part of routine gynecological examination GLUCOSE TOLERANCE, 3 HOURS Routine 12/29/2024 11:27 AM EDT with abnormal glucose tolerance test SECOND HOUR GLUCOSE TOLERANCE 100 GM LOAD Routine 12/29/2024 10:25 AM EDT with abnormal glucose tolerance test GLUCOSE TOLERANCE, 1 HOUR Routine 12/29/2024 9:24 AM EDT with abnormal glucose tolerance test GLUCOSE TOLERANCE, FASTING Routine 12/29/2024 8:20 AM EDT with abnormal glucose tolerance test GLUCOSE TOLERANCE, FASTING Routine 12/29/2024 8:20 AM EDT with abnormal glucose tolerance test BB ARC TUBES Routine 12/25/2024 8:52 AM EDT care, first trimester Obesity in TYPE AND SCREEN Routine 12/25/2024 8:51 AM EDT care, first trimester GLU 1H POST 50G LOAD Routine 12/25/2024 8:51 AM EDT care, first trimester Obesity in GLUCOSE TOLERANCE, 1 HR 50GM LOAD ( PATIENTS ONLY) Routine 12/25/2024 8:51 AM EDT care, first trimester Obesity in SICKLE SOLUBILITY Routine 12/25/2024 8:5 1 AM EDT care, first trimester SYPHILIS TOTAL(UNKNOWN SYPHILIS STATUS) Routine 12/25/2024 8:51 AM EDT care, first trimester VARICELLA ZOSTER ANTIBODY, IGG Routine 12/25/2024 8:51 AM EDT care, first trimester HEPATITIS PANEL, ACUTE Routine 12/25/2024 8:51 AM EDT care, first trimester RUBELLA ANTIBODY, IGG Routine 12/25/2024 8:51 AM EDT care, first trimester HIV 1&2 AB/AG SCREEN (P24 AG) Routine 12/25/2024 8:51 AM EDT care, first trimester CBC (NO DIFF) Routine 12/25/2024 8:51 AM EDT care, first trimester DRUG SCREEN, URINE Routine 12/25/2024 8: 16 AM EDT care, first trimester URINALYSIS Routine 12/25/2024 8:16 AM EDT care, first trimester URINE CULTURE Routine 12/25/2024 8:16 AM EDT care, first trimester HCG-BETA, SERUM Routine 12/15/2024 10:01 AM EDT Amenorrhea US PREG LESS THAN 14 WKS WITH TRANSVAGINAL STAT 12/15/2024 9:31 AM EDT Threatened affecting intrauterine HCG-BETA, SERUM Routine 12/13/2024 8:15 AM EDT Threatened affecting intrauterine HCG-BETA, SERUM Routine 12/11/2024 7:53 AM EDT Back pain affecting Bleeding in early Abdominal pain during in first trimester US PREG LESS THAN 14 WKS WITH TRANSVAGINAL Routine 12/10/2024 2:37 PM EDT Back pain affecting Bleeding in early Abdominal pain during in first trimester HCG-BETA, SERUM Routine 12/09/2024 8:11 AM EDT Back pain affecting Bleeding in early Abdominal pain during in first trimester TYPE AND SCREEN Routine 12/06/2024 8:16 AM EDT Bleeding in early HCG-BETA, SERUM Routine 12/06/2024 8:11 AM EDT Back pain affecting Bleeding in early Abdominal pain during in first trimester XR CHEST 2 VWS STAT 10/19/2024 12:53 AM EDT from Last 3 Months Results * Chlamydia/Gonorrhoeae by PCR, Fluid (01/01/2025 11:36 AM EDT) CHLAMYDIA PCR, [place] Negative Negative 01/02/2025 12:58 PM EDT [facility] Comment:Chlamydia trachomati s not detected by nucleic acid amplification. This does not exclude the possibility of infection because results are dependent on adequate specimen collection. GONORRHOEAE PCR, [place] Negative Negative 01/02/2025 12:58 PM EDT [facility] Comment:Neisseria gonorrhoea e not detected by nucleic acid amplification. This does not exclude the possibility of infection because results are dependent on adequate specimen collection. Thin Prep (Cervix/Endocerv ix) 01/01/2025 11:36 AM EDT 01/02/2025 5:05 AM EDT us Ernestine Hopkins TALCER-CRANKSHAFT BALANCER MICROBIOLOGY - GENERAL O RDERABLES Final Result [facility] [address] [place] [address], [place] [phone] * (ABNORMAL) Thin Prep Pap Test (01/01/2025 11:36 AM EDT) Case Report Gynecologic Cytology Report Case: [id number] Authorizing Provider: Ernestine Hopkins APRN-JOYCE Collected: 01/01/2025 1136 [facility] Received: 01/01/2025 1136 Obstetrics/Gy necology First Screen: Maurice Moreland, ELVIN(ASCP) Pathologist: Randy Heard MD Specimen: Thin Prep Pap, Cervix/Endocer vix 2:18 PM EDT [facility] Specimen Adequacy Satisfactory for evaluation, endocervical/t ransformation zone component present 2:18 PM EDT [facility] Interpretation SQUAMOUS EPITHELIAL CELL ABNORMALITY HIGH GRADE SQUAMOUS INTRAEPITHELIA L LESION(A) NEGATIVE FOR INTRAEPITHELIA L LESION OR MALIGNANCY, UNSATISFACTORY , EPITHELIAL CELL ABNORMALITY, GLANDULAR EPITHELIAL CELL ABNORMALITY. , SQUAMOUS EPITHELIAL CELL ABNORMALITY, NO DIAGNOSIS RENDERED. 2:18 PM EDT [facility] at 1418 EDT Additional Information The Pap test is a screening test with an inherent, but low, probability of error. The Pap test is primarily effective for the diagnosis and prevention of squamous cell carcinoma. Regular screening is critical for prevention. ThinPrep liquid-based slides, which meet the Electronic Prepress System Operator criteria for automated screening, have been screened by the [place] [employer] System (as of 12/24/06) along with an additional manual rescreening by a cytotechnologi st and, if indicated, by a pathologist. 2:18 PM EDT [facility] Clinical Information screening 2:18 PM EDT [facility] Embedded Images 2:18 PM EDT [facility] Thin Prep (Cervix/Endocerv ix) 01/01/2025 11:36 AM EDT 01/01/2025 11:36 AM EDT us Ernestine Hopkins TALCER-CRANKSHAFT BALANCER PATHOLOGY/CYTOLOGY ORDER MARGO Final Result [facility] [address] [place] [address], * (ABNORMAL) High risk HPV w/yusra (01/01/2025 11:36 AM EDT) Pathologist [facility] HPV 16 Positive(A) Negative 01/02/2025 2:10 PM EDT [facility] HPV 18 Negative Negative 01/02/2025 2:10 PM EDT [facility] OTHER HIGH RISK HPV Negative Negative 01/02/2025 2:10 PM EDT [facility] Comment:HPV types 31, 33, 35 , 39, 45, 52, 56, 58, 59, 66, and 68 DNA were undetectable. Thin Prep (Cervix/Endocerv ix) 01/01/2025 11:36 AM EDT 01/02/2025 5:05 AM EDT Ernestine Hopkins TALCER-[facility] BLOOD ORDERABLES Fin al Result [facility] [address] [place] [address], * (ABNORMAL) Glucose tolerance, 3 hours (12/29/2024 11:27 AM EDT) [facility] GLUCOSE TOLERANCE TEST, 3 HOUR 141(H) 65 - 99 mg/dL 12/29/2024 6:11 PM EDT [facility] Blood Venous blood / Unknown Venipuncture / Unknown 12/29/2024 11:27 AM EDT 12/29/2024 11:27 AM EDT Ernestine Hopkins TAL[facility]ER-[facility] BLOOD ORDERABLES Fin al Result [facility] [address] [place] [address], [place] [phone] * (ABNORMAL) 2nd hr Glucose Tolerance 100 gm load (12/29/2024 10:25 AM EDT) 2ND HR GTT 100GM LOAD 214(H) 70 - 139 mg/dL 12/29/2024 2:01 PM EDT [facility] Blood Venous blood / Unknown Venipuncture / Unknown 12/29/2024 10:25 AM EDT 12/29/2024 10:25 AM EDT Narrative [facility] - 12/29/2024 2:01 PM EDT [employer] International Workshop Conference: Recommendations and Rationale for Screening and diagnosis of Gestational Diabetes Mellitus 2 or more of the following must be met or exceeded for a positive diagnosis. FASTING: >=95 mg/dL 1hr post 100g load: >=180 mg/dL 2hr post 100g load: >=155 mg/dL 3hr post 100g load: >=140 mg/dL Ernestine Hopkins TALCER-CRANKSHAFT BALANCER LAB BLOOD ORDERABLES Fin al Result [facility] [address] [place] [address], * (ABNORMAL) Glucose tolerance, 1 hour (12/29/2024 9:24 AM EDT) GLUCOSE TOLERANCE TEST, 1 HOUR 197(H) 120 - 170 mg/dL 12/29/2024 1:59 PM EDT [facility] Blood Venous blood / Unknown Venipuncture / Unknown 12/29/2024 9:24 AM EDT 12/29/2024 9:24 AM EDT Ernestine Hopkins TALCER-CRANKSHAFT BALANCER LAB BLOOD ORDERABLES Fin al Result [facility] [address] [place] [address], [place] [phone] * Glucose, tolerance fasting (12/29/2024 8:20 AM EDT) GLUCOSE TOLERANCE TEST, FASTING 85 65 - 99 mg/dL 12/29/2024 2:00 PM EDT [facility] Blood Venous blood / Unknown Venipuncture / Unknown 12/29/2024 8:20 AM EDT 12/29/2024 8:20 AM EDT Ernestine Hopkins TAL[facility]ER-[facility] BLOOD ORDERABLES Fin al Result Performing Organization Address City/[facility]/ZIP Co de Phone Number [facility] [address] [place] [address], * BB ARC TUBES (12/25/2024 8:52 AM EDT) Extra Tube Auto Resulted 12/25/2024 10:02 AM EDT PAULINO ALBERT Blood Venous blood / Unknown Venipuncture / Unknown 12/25/2024 8:52 AM EDT 12/25/2024 8:52 AM EDT [facility]estine [facility] ORDERABL ES Final Result Performing Organization Address City/[facility] Co de Phone Number PAULINO Ascencio PRAT[facility] [address] [address], [place] * HIV 1&2 AB/AG Screen (P24 AG) (12/25/2024 8:51 AM EDT) HIV 1 AND 2 AB/AG SCREEN Non-Reacti ve Non-Reacti ve 12/25/2024 2:59 PM EDT [facility] Blood Venous blood / Unknown Venipuncture / Unknown 12/25/2024 8:51 AM EDT 12/25/2024 8:51 AM EDT Narrative [facility] - 12/25/2024 2:59 PM EDT [...] release of HIV test results or diagnoses. Ernestine Dohertyjen TALCER-CRANKSHAFT BALANCER LAB BLOOD ORDERABLES Fin al Result [facility] [address] [place] [address], * Syphilis Total(Unknown Syphilis Status) (12/25/2024 8:51 AM EDT) SYPHILIS TOTAL <0.2 <=0.8 AI 12/25/2024 4:27 PM EDT [facility] Blood Venous blood / Unknown Venipuncture / Unknown 12/25/2024 8:51 AM EDT 12/25/2024 8:51 AM EDT Narrative [facility] - 12/25/2024 4:27 PM EDT NON REACTIVE No serologic evidence of infection to Treponema pallidum. Repeat testing may be considered in patients with suspected acute or primary syphilis in 2 to 4 weeks. Ernestine Mehta Kellie TALCER-CRANKSHAFT BALANCER LAB BLOOD ORDERABLES Fin al Result Performing Organization Address City/[facility]/ZIP Co de Phone Number [facility] [address] [place] [address], * (ABNORMAL) Glucose 1h post 50g load (12/25/2024 8:51 AM EDT) GLUCOSE, 1HR POST 50GM LOAD 163(H) 65 - 139 mg/dL 12/25/2024 1:47 PM EDT [facility] Blood Venous blood / Unknown Venipuncture / Unknown 12/25/2024 8:51 AM EDT 12/25/2024 8:51 AM EDT Ernestine Dohertyrobbzara TALCER-CRANKSHAFT BALANCER LAB BLOOD ORDERABLES Fin al Result [facility] [address] [place] [address], * Hepatitis panel, acute (12/25/2024 8:51 AM EDT) HEPATITIS B SURF AG Non-Reacti ve Non-Reacti ve 12/25/2024 3:07 PM EDT [facility] HEPATITIS A IGM Non-Reacti ve Non-Reacti ve 12/25/2024 3:07 PM EDT [facility] HEPATITIS B CORE IGM Non-Reacti ve Non-Reacti ve 12/25/2024 3:07 PM EDT [facility] ANTI HCV W/PCR REFLX Non-Reacti ve Non-Reacti ve 12/25/2024 3:07 PM EDT [facility] Comment: If recent infection suspected, recommend repeat testing (>2 months). Ejumry-ob-zfovqs ratio is <1.0. Blood Venous blood / Unknown Venipuncture / Unknown 12/25/2024 8:51 AM EDT 12/25/2024 8:51 AM EDT Ernestine Hopkins [facility] BLOOD ORDERABLES Fin al Result [facility] [address] [place] [address], * Rubella antibody, IgG (12/25/2024 8:51 AM EDT) Pathologist [facility] RUBELLA IGG 26 <9 IU/mL 12/25/2024 4:26 PM EDT [facility] Blood Venous blood / Unknown Venipuncture / Unknown 12/25/2024 8:51 AM EDT 12/25/2024 8:51 AM EDT Narrative [facility] - 12/25/2024 4:26 PM EDT Interpretation < 8 NEGATIVE - considered not immune. 8 - 9 EQUIVOCAL - consider retesting with new specimen. > 9 POSITIVE - considered immune. Ernestine Hopkins [facility] BLOOD ORDERABLES Fin al Result [facility] [address] [place] [address], [place] [phone] * Sickle solubility (12/25/2024 8:51 AM EDT) Pathologist [facility] Sickle Solubility Negative Negative 12/25/2024 2:53 PM EDT [facility] Blood Venous blood / Unknown Venipuncture / Unknown 12/25/2024 8:51 AM EDT 12/25/2024 8:51 AM EDT us Ernestine Hopkins TALCER-CRANKSHAFT BALANCER LAB BLOOD ORDERABLES Fin al Result [facility] [address] [place] [address], [place] [phone] * (ABNORMAL) CBC without diff (12/25/2024 8:51 AM EDT) [facility] WBC 9.1 4 - 11 x10E9/L 12/25/2024 1:39 PM EDT [facility] RBC Count 4.70 3.8 - 5.2 X10E12/L 12/25/2024 1:39 PM EDT [facility] Hemoglobin 11.4(L) 11.7 - 15.5 g/dL 12/25/2024 1:39 PM EDT [facility] Hematocrit 35.5 35 - 47 % 12/25/2024 1:39 PM EDT [facility] MCV 76(L) 80 - 100 fL 12/25/2024 1:39 PM EDT [facility] MCH 24.2(L) 27 - 34 pg 12/25/2024 1:39 PM EDT [facility] MCHC 32.1 32 - 36 g/dL 12/25/2024 1:39 PM EDT [facility] RDW 17.3(H) 11.5 - 15 % 12/25/2024 1:39 PM EDT [facility] Platelet Count 332 150 - 450 X10E9/L 12/25/2024 1:39 PM EDT [facility] MPV 8.2 7 - 12 fL 12/25/2024 1:39 PM EDT [facility] Blood Venous blood / Unknown Venipuncture / Unknown 12/25/2024 8:51 AM EDT 12/25/2024 8:51 AM EDT Ernestine Hopkins [facility] BLOOD ORDERABLES Fin al Result [facility] [address] [place] [address], [place] [phone] * Type and screen (12/25/2024 8:51 AM EDT) Only the most recent of2 resultswithin the time period is included. ABO A 12/25/2024 2:02 PM EDT [facility] RH Positive 12/25/2024 2:02 PM EDT [facility] Antibody Screen Negative 12/25/2024 2:02 PM EDT [facility] Blood Venous blood / Unknown Venipuncture / Unknown 12/25/2024 8:51 AM EDT 12/25/2024 8:51 AM EDT Ernestine Hopkins [facility] BLOOD BANK TEST ORDERABL ES Edited Result - Final Performing Organization Address [facility] [facility]/ZIP Co de Phone Number [facility] [address] [address], [facility] [address] [place] [address], [place] * Varicella zoster antibody, IgG (12/25/2024 8:51 AM EDT) VARICELLA IGG 0.7 <1.0 AI 12/25/2024 4:28 PM EDT [facility] Blood Venous blood / Unknown Venipuncture / Unknown 12/25/2024 8:51 AM EDT 12/25/2024 8:51 AM EDT Narrative [facility] - 12/25/2024 4:28 PM EDT Intepretation < 0.9 Negative 0.9 - 1.0 Equivocal > 1.0 Positive us Ernestine Mehta Kellie TALCER-CRANKSHAFT BALANCER LAB BLOOD ORDERABLES Fin al Result [facility] [address] [place] [address], * Drug Screen, Urine (12/25/2024 8:16 AM EDT) Pathologist [facility] AMPHETAMINE/METHAMP Negative Negative 12/25 2:08 PM EDT [facility] Comment:AMPH/METH screening cut off = 1000 ng/mL COCAINE METABOLITE Negative Negative 2024 2:08 PM EDT [facility] Comment:Cocaine screening cu t off value = 300 ng/mL ECSTASY Negative Negative 12/25/2024 2:08 PM EDT [facility] Comment:Ecstasy screening cu t off value = 500 ng/mL METHADONE Negative Negative 12/25/2024 2:08 PM EDT [facility] Comment:Methadone screening cut off value = 300 ng/mL. OPIATES Negative Negative 12/25/2024 2:08 PM EDT [facility] Comment: Opiates screening cut off value = 300 ng/mL This test is used for the detection of codeine, hydrocodone (>1000 ng/mL), morphine and hydromorphone (>900 ng/mL) in urine. OXYCODONE Negative Negative 12/25/2024 2:08 PM EDT [facility] Comment: Oxycodone screening cut off value = 300 ng/mL This test is used for the detection of oxycodone and oxymorphone in urine. PHENCYCLIDINE Negative Negative 12/25/2024 2:08 PM EDT [facility] Comment:Phencyclidine screen ing cut off value = 25 ng/mL CANNABINOIDS Negative Negative 12/25/2024 2:08 PM EDT [facility] Comment:Cannabinoids/THC scr eening cut off value = 50 ng/mL Urine Barbiturates Negative Negative 2024 2:08 PM EDT [facility] Comment:Barbiturates screeni ng cut off value = 200 ng/mL BENZODIAZEPINES Negative Negative 2:08 PM EDT [facility] Comment:Benzodiazepines scre ening cut off value = 200 ng/mL Urine Collection / Unknown 12/25/2024 8:16 AM EDT 12/25/2024 8:18 AM EDT us Ernestine Hopkins TALCER-CRANKSHAFT BALANCER URINE ORDERABLES Final R esult [facility] [address] [place] [address], * Urinalysis (12/25/2024 8:16 AM EDT) COLOR Yellow Yellow 12/25/2024 1:41 PM EDT [facility] TURBIDITY Clear Clear 12/25/2024 1:41 PM EDT [facility] SPECIFIC GRAVITY 1.020 1.003 - 1.035 12/25/2024 1:41 PM EDT [facility] NITRITE Negative Negative 12/25/2024 1:41 PM EDT [facility] PH,URINE 5.5 5.0 - 8.5 12/25/2024 1:41 PM EDT [facility] LEUKOCYTE ESTERASE Negative Negative 12/25/2024 1:41 PM EDT [facility] PROTEIN Negative Negative 12/25/2024 1:41 PM EDT [facility] KETONES (URINE) Negative Negative 1:41 PM EDT [facility] UROBILINOGEN <1.1 eu/dL <1.1 eu/dL 12/25/2024 1:41 PM EDT [facility] BILIRUBIN (URINE) Negative Negative 12/25/2024 1:41 PM EDT [facility] BLOOD/HGB Negative Negative 12/25/2024 1:41 PM EDT [facility] GLUCOSE (URINE) Negative Negative 1:41 PM EDT [facility] Urine Urine / Unknown Collection / Unknown 12/25/2024 8:16 AM EDT 12/25/2024 8:18 AM EDT [facility] - 12/25/2024 1:41 PM EDT Urine received without preservative. Delays in transport may affect results. Interpret with caution. A clinical correlation is recommended. Ernestine Hopkins TALCER-CRANKSHAFT BALANCER URINE ORDERABLES Final R esult [facility] [address] [place] [address], [place] [phone] * Urine culture (12/25/2024 8:16 AM EDT) CULTURE RESULTS NO GROWTH AT <1000 CFU/mL 12/26/2024 8:21 AM EDT [facility] Urine Urine specimen collection, clean catch / Unknown Collection / Unknown 12/25/2024 8:16 AM EDT 12/25/2024 8:18 AM EDT [facility] - 12/26/2024 8:21 AM EDT Urine received without preservative - delays in transport may affect results. Interpret with caution and clinical correlation is recommended. Ernestine Hopkins TALCER-CRANKSHAFT BALANCER MICROBIOLOGY - GENERAL O RDERABLES Final Result [facility] [address] [place] [address], [place] [phone] * HCG, Quantitative, (12/15/2024 10:01 AM EDT) Only the most recent of5 resultswithin the time period is included. SERUM B HCG,3RD I.S. 6,392 mIU/mL 12/15/2024 2:46 PM EDT [facility] Blood Venipuncture / Unknown 12/15/2024 10:01 AM EDT 12/15/2024 10:01 AM EDT Narrative [facility] - 12/15/2024 2:46 PM EDT WEEKS (SINCE LMP) MIU/mL 3 WEEKS 5 [...] necessarily diagnostic for trophoblastic or nontrophoblastic neoplasms. us Kae Grant MD LAB BLOOD ORDERABLES Final Res ult [facility] [address] [place] [address], [place] [phone] * Ultrasound less than 14 weeks with transvaginal (12/15/2024 9:31 AM EDT) Only the most recent of2 resultswithin the time period is included. Anatomical Region Laterality Modality OB-CLINICAL RESEARCH ASSISTANT Ultrasound 12/15/2024 9:40 AM EDT Narrative 12/15/2024 9:47 AM EDT CLINICAL INFORMATION: Prior ultrasound was of unknown [...] sac. Yolk sac: 0.1 cm (suboptimally visualized) Tibes-rump length (CRL): 0.7 cm corresponding to a [...] Mercedes Hensley MD on 12/15/2024 9:47 AM Procedure Note Mercedes Hensley MD - 12/15/2024 CLINICAL INFORMATION: Prior ultrasound was of unknown location. Estimated gestational age of 8 weeks 0 days by last menstrual period. Last menstrual period: 10/20/2024. COMPARISON: Obstetric ultrasound dated 12/10/2024. FINDINGS: Transvaginal and limited transabdominal ultrasound of the pelvis. UTERUS AND GESTATIONAL SAC: Intrauterine gestation: Single. Gestational sac: Mean sac diameter of 0.9 cm. Normal rounded morphologynoting small volume fluid within the sac. Yolk sac: 0.1 cm (suboptimally visualized) Tibes-rump length (CRL): 0.7 cm corresponding to a gestational age of 6weeks 4 days +/- 2 days. heart motion: 139 bpm. Subchorionic hemorrhage: None. OVARIES: No suspicious masses. Right ovary: 5.9 x 5.9 x 6.1 cm. Similar simple cysts for examplemeasuring 3.0 x 2.4 x 2.2 cm. Similar 4.3 x 3.9 x 4.3 cm hemorrhagic cystversus endometrioma. Left ovary: 4.6 x 2.4 x 3.4 cm. Benign corpus luteum measures 2.4 x 1.5 x1.9 cm. Similar dominant follicle measures 1.7 x 0.9 x 1.3 cm. FREE FLUID: Small volume simple pelvic fluid. IMPRESSION: 1. Single live intrauterine gestation with crown-rump length measuring0.7 cm corresponding to a gestational age of 6 weeks 4 days +/- 2 days.Relative small volume amniotic fluid noted within the gestational sac.Recommend attention on follow- up. 2. Similar right ovarian 4.3 cm hemorrhagic cyst versus endometrioma. 3. Similar right simple ovarian cysts. 4. Benign left corpus luteum. 5. Small volume simple pelvic fluid. Finalized by Mercedes Hensley MD on 12/15/2024 9:47 AM us Bridget M Lauren TALCER-CNM IMG US ORDERABLES Final Result * X-ray chest 2 views (10/19/2024 12:53 AM EDT) Anatomical Region Laterality Modality Body, Chest N/A Computed Radiogr aphy 10/19/2024 12:5 3 AM EDT Narrative 10/19/2024 12:54 AM EDT History: Cough Exam/Technique: PA and lateral chest Comparison: 04/02/2024 Findings: There is no evidence of active pulmonary or pleural disease. Cardiac and mediastinal contours are within normal limits. IMPRESSION: Normal chest radiographs. Finalized by Ángel Posadas MD on 10/19/2024 12:54 AM Procedure Note Ángel Posadas MD - 10/19/2024 History: Cough Exam/Technique: PA and lateral chest Comparison: 04/02/2024 Findings: There is no evidence of active pulmonary or pleural disease. Cardiac and mediastinal contours are within normal limits. IMPRESSION: Normal chest radiographs. Finalized by Ángel Posadas MD on 10/19/2024 12:54 AM Zeke Crandall DO IMG DIAGNOSTIC IMAGING ORDER MARGO Final Result from Last 3 Months Insurance
--- OUTSIDE RECORDS SUMMARY | 2025-01-05 21:37 | XMS_ITS | Encounter Summary ---
Author Organization [employer] [facility] tem Address [id number] [address] [place] [address] Care Team Providers Care Strap Cutting Machine Operator Name Role Phone Unavailable Primary Care Provider Unavailabl e Encounter Details Date Type Department Care Team (Late st Contact Info) Description 01/05/2025 Results Follow-Up [facility] Obstetrics/Gynecolog y [address] [facility] [place] [address] Ernestine Hopkins, TOOL POLISHING MACHINE OPERATOR-PLATFORM SOFTWARE ENGINEER [address] [place], [place] [id number] Thin Prep Pap Test, High risk HPV w/yusra, Chlamydia/Gonorrhoea e by PCR, Fluid Social History Tobacco Use Types Packs/Day Years [...] Office Visit [facility] Obstetrics/Gynecology [address] [place] [phone] Kae Grant MD [address] [facility] [place] [address] 01/26/2025 9:30 AM EDT Appointment [facility] - Ultrasound [address] [place] [phone] Kae Grant MD [address] [facility] [place] [address] 03/12/2025 9:00 AM EST Office Visit [facility] Pulmonary/Sleep Medicine [address] [place] [phone] Carrie Mabry, DO [address] [address] documented as of this encounter Visit Diagnoses Not on filedocumented in this encounter Additional Health Concerns Assessment Noted Time PHQ-9 Depression Total Score: 3 01/02/20 25 10:31 AM EDT A Body Mass Index follow-up plan has been documented for the patient 08/06/2023 1:12 PM EDT documented as of this encounter
--- OUTSIDE RECORDS SUMMARY | 2025-01-05 21:37 | XMS_ITS | Encounter Summary ---
Author Organization [facility] Address [id number] [address] [place] [address] Care Team Providers Care Passenger Solicitor Name Role Phone Unavailable Primary Care Provider Unavailabl e Reason for Referral * Consultation (Routine) - Pending Review Specialty Diagnoses / Procedures Referred By Contac t Referred To Contact Maternal and Medicine Diagnoses Diet controlled gestational diabetes mellitus (GDM) in first trimester Ernestine Hopkins APRN-JOYCE [address] [place] [address] Phone: tel: fax: Maternal- Medicine at [address] [phone] Phone: tel: fax: Referral ID Status Reason Start Date Expiration Date Visits Requested Visits Authorized [id number] Pending Review Specialty Services Required 12/30/2024 12/30/2025 1 1 * Consultation (Routine) - Pending Review Specialty Diagnoses / Procedures Referred By Contac t Referred To Contact Maternal and Medicine Diagnoses Diet controlled gestational diabetes mellitus (GDM) in first trimester Ernestine Hopkins APRN-CNP [address] [place] [address] Phone: tel: fax: Maternal- Medicine at [facility] [address] Phone: tel: fax: Referral ID Status Reason Start Date Expiration Date V isits Requested Visits Authorized [id number] Pending Review 12/30/2024 12/30/2025 1 1 * Consultation (Routine) - Pending Review Specialty Diagnoses / Procedures Referred By Meño t Referred To Contact Maternal and Medicine Diagnoses Diet controlled gestational diabetes mellitus (GDM) in first trimester Ernestnie Hopkins APRN-CNP [address] [place] [address] Phone: tel: fax: Maternal- Medicine at [address] [phone] Phone: tel: fax: Referral ID Status Reason Start Date Expiration Date Visits Requested Visits Authorized [id number] Pending Review Specialty Services Required 12/30/2024 12/30/2025 1 1 Encounter Details Date Type Department Care Team (Late st Contact Info) Description 12/30/2024 Orders Only [facility] Obstetrics/Gynecology [address] [place] [phone] Ernestine Hopkins APRN-CNP [address] [place] [address] Diet controlled gestational diabetes mellitus (GDM) in first trimester (Primary Dx) Social History Tobacco Use Types [...] Office Visit [facility] Obstetric[facility]/Gynecology [address] [place] [place] [address] Kae Grant MD [address] [place] [address] 01/26/2025 9:30 AM EDT Appointment [facility] - Ultrasound [address] [place] [phone] Kae Grant MD [address] [place] [address] 03/12/2025 9:00 AM EST Office Visit [facility] Pulmonary/Sleep Medicine [address] [place] [phone] Carrie Mabry, DO [address] [address] Scheduled Orders Name Type Priority Associated Diagnoses Orde r Schedule LDH Lab Routine Diet controlled gestational diabetes mellitus (GDM) in first trimester Ordered: 12/30/2024 Comprehensive metabolic panel Lab Routine Diet controlled gestational diabetes mellitus (GDM) in first trimester Ordered: 12/30/2024 TSH Lab Routine Diet controlled gestational diabetes mellitus (GDM) in first trimester Ordered: 12/30/2024 T4, free Lab Routine Diet controlled gestational diabetes mellitus (GDM) in first trimester Ordered: 12/30/2024 Hemoglobin A1c Lab Routine Diet controlled gestational diabetes mellitus (GDM) in first trimester Ordered: 12/30/2024 Protein creat ratio Lab Routine Diet controlled gestational diabetes mellitus (GDM) in first trimester Ordered: 12/30/2024 Vitamin D 25 hydroxy Lab Routine Diet controlled gestational diabetes mellitus (GDM) in first trimester Ordered: 12/30/2024 Scheduled Referrals Name Type Priority Associated Diagnoses Order Schedule Ambulatory Referral to Maternal Medicine - Diabetes Education Outpatient Referral Routine Diet controlled gestational diabetes mellitus (GDM) in first trimester 1 Occurrences starting 12/30/2024 until 12/30/2025 Ambulatory Referral to Maternal Medicine - Nutrition Education Outpatient Referral Routine Diet controlled gestational diabetes mellitus (GDM) in first trimester 1 Occurrences starting 12/30/2024 until 12/30/2025 Ambulatory referral to Maternal Medicine for Consult Outpatient Referral Routine Diet controlled gestational diabetes mellitus (GDM) in first trimester 1 Occurrences starting 12/30/2024 until 12/30/2025 documented as of this encounter Visit Diagnoses Diagnosis Diet controlled gestational diabetes mellitus (GDM) in first trimester- Primary documented in this encounter Additional Health Concerns Assessment Noted Time PHQ-9 Depression Total Score: 15 024 2:12 PM EDT A Body Mass Index follow-up plan has been documented for the patient 08/06/2023 1:12 PM EDT documented as of this encounter
--- OUTSIDE RECORDS SUMMARY | 2025-01-05 21:37 | XMS_ITS | Encounter Summary ---
Author Organization [employer] [facility] [employer] Address [id number] [address] [place] [address] Care Team Providers Care Mechanical Engineering Officer Name Role Phone Unavailable Primary Care Provider Unavailabl e Encounter Details Date Type Department Care Team (Latest Contact Info) Description 01/01/2025 Travel Social History Tobacco Use Types Packs/Day [...] Office Visit [facility] Obstetrics/Gynecology [address] [place] [phone] Kae Grant MD [address] [facility] [place] [address] 01/26/2025 9:30 AM EDT Appointment [facility] - Ultrasound [address] [place] [phone] Kae Grant MD [address] [facility] [place] [place] [address] 03/12/2025 9:00 AM EST Office Visit [facility] Pulmonary/Sleep Medicine [address] [place] [phone] Carrie Mabry, DO [address] [address] documented as of this encounter Visit Diagnoses Not on filedocumented in this encounter Additional Health Concerns Assessment Noted Time PHQ-9 Depression Total Score: 3 01/02/20 25 10:31 AM EDT A Body Mass Index follow-up plan has been documented for the patient 08/06/2023 1:12 PM EDT documented as of this encounter
[2025-01-05 21:38] VITALS: BP 117/75; PULSE 88; TEMP 37.1; O2SAT 99; BMI 34.8
--- OUTSIDE RECORDS SUMMARY | 2025-01-05 21:38 | XMS_ITS | Encounter Summary ---
Author Organization [employer] [facility] [employer] Address [id number] [address] [place] [address] Care Team Providers Care Health Record Technician Name Role Phone Unavailable Primary Care Provider Unavailabl e Encounter Details Date Type Department Care Team (Latest Contact Info) Description 12/23/2024 Travel Social History Tobacco Use Types Packs/Day [...] Visit [facility] Obstetrics/Gynecology [address] [place] [phone] Kae Grant MD [address] [facility] [place] [address] 01/26/2025 9:30 AM EDT Appointment [facility] - Ultrasound [address] [place] [phone] Kae Grant MD [address] [place] [address] 03/12/2025 9:00 AM EST Office Visit [facility] Pulmonary/Sleep Medicine [address] [place] [phone] Carrie Mabry, [address] [place] [address] documented as of this encounter Visit Diagnoses Not on filedocumented in this encounter Additional Health Concerns Assessment Noted Time PHQ-9 Depression Total Score: 15 024 2:12 PM EDT A Body Mass Index follow-up plan has been documented for the patient 08/06/2023 1:12 PM EDT documented as of this encounter
--- OUTSIDE RECORDS SUMMARY | 2025-01-05 21:38 | XMS_ITS | Encounter Summary ---
Author Organization [facility] Address [facility] [place] [facility] [id number] [address] [place] [address] Care Team Providers Care Lumber Grader Name Role Phone No Pcp, No Pcp Primary Care Provider Unavailabl e Encounter Details Date Type Department Care Team (Late st Contact Info) Description 12/07/2024 Results [facility]-Up [facility] [address] [place] [phone] Bridget Aguilar, EXECUTIVE CYBER LEADER-CN [address] [facility] [place] [address] Type and screen Social History Tobacco Use Types Packs/Day Years [...] Office Visit [facility] Obstetrics/Gynecology [address] [place] [phone] Kae Grant MD [address] [place] [address] 01/26/2025 9:30 AM EDT Appointment [facility] - Ultrasound [address] [place] [phone] Kae Grant MD [address] [place] [address] 03/12/2025 9:00 AM EST Office Visit [facility] Pulmonary/Sleep Medicine [address] [place] [phone] Carrie Mabry, DO [address] [place] [phone] documented as of this encounter Visit Diagnoses Not on filedocumented in this encounter Additional Health Concerns Assessment Noted Time PHQ-9 Depression Total Score: 15 08/01/2 024 2:12 PM EDT A Body Mass Index follow-up plan has been documented for the patient 08/06/2023 1:12 PM EDT documented as of this encounter Care Teams Lumber Grader Relationship Specialty Start Date End Date No Pcp, [place] [address] PCP - General Family Medicine 12/06/24 12/22/24 documented as of this encounter
--- OUTSIDE RECORDS SUMMARY | 2025-01-05 21:38 | XMS_ITS | Encounter Summary ---
Author Organization [employer] Address [facility] [id number] [address] [place] [address] Care Team Providers Care Annealing Torch Operator Name Role Phone Unavailable Primary Care Provider Unavailabl e Encounter Details Date Type Department Care Team (Latest Contact Info) Description 12/23/2024 Results Follow-Up [facility] Obstetrics/Gynecolog y [address] [facility] [place] [address] Ernestine Hopkins, IRONER OR PRESSER-PERSONAL CHEF [address] [place], [place] [phone] Ultrasound less than 14 weeks with transvaginal Social History Tobacco Use Types Packs/Day Years [...] Upcoming Encounters Date Type Department Care Team ([facility] st Contact Info) Description 01/06/2025 8:15 AM EDT Office Visit [facility] Obstetrics/Gynecology [address] [phone] Kae Grant MD [address] [facility] [facility] [place] [address] 01/26/2025 9:30 AM EDT Appointment [facility] - Ultrasound [address] [place] [phone] Kae Grant MD [address] [facility] [address] [place] [address] 03/12/2025 9:00 AM EST Office Visit [facility] Pulmonary/Sleep Medicine [address] [place] [phone] Carrie Mabry, DO [address] [address] documented as of this encounter Visit Diagnoses Not on filedocumented in this encounter Additional Health Concerns Assessment Noted Time PHQ-9 Depression Total Score: 15 024 2:12 PM EDT A Body Mass Index follow-up plan has been documented for the patient 08/06/2023 1:12 PM EDT documented as of this encounter
--- OUTSIDE RECORDS SUMMARY | 2025-01-05 21:38 | XMS_ITS | Encounter Summary ---
Author Organization [employer] Address [facility] [id number] [address] [place] [address] Care Team Providers Care Manager Council Name Role Phone No Pcp, No Pcp Primary Care Provider Unavailabl e Encounter Details Date Type Department Care Team (Late st Contact Info) Description 12/15/2024 Results Follow-Up [facility] Obstetrics/Gynecolog y [address] [place] [address] Kae Grant MD [address] [facility] [place] [address] HCG, Quantitative, Social History Tobacco Use Types Packs/Day Years [...] Office Visit [facility] Obstetrics/Gynecology [address] [place] [phone] Kae Grant MD [address] [place] [address] 01/26/2025 9:30 AM EDT Appointment [facility] - Ultrasound [address] [place] [phone] Kae Grant MD [address] [place] [address] 03/12/2025 9:00 AM EST Office Visit [facility] Pulmonary/Sleep Medicine [address] [place] [phone] Carrie Mabry, DO [address] [place] [phone] documented as of this encounter Visit Diagnoses Not on filedocumented in this encounter Additional Health Concerns Assessment Noted Time PHQ-9 Depression Total Score: 15 08/01/2 024 2:12 PM EDT A Body Mass Index follow-up plan has been documented for the patient 08/06/2023 1:12 PM EDT documented as of this encounter Care Teams Manager Council Relationship Specialty Start Date End Date No Pcp, [place] [address] PCP - General Family Medicine 12/06/24 12/22/24 documented as of this encounter
--- OUTSIDE RECORDS SUMMARY | 2025-01-05 21:38 | XMS_ITS | Encounter Summary ---
Author Organization [employer] tem Address [id number] [address] [place] [address] Care Team Providers Care Seam Press Operator Name Role Phone No Pcp, No Pcp Primary Care Provider Unavailabl e Encounter Details Date Type Department Care Team (Latest Contact Info) Description 12/22/2024 Travel Social History Tobacco Use Types Packs/Day [...] Visit [facility] Ob[facility]ne[facility] [address] [place] [phone] Kae Grant MD [address] [place] [address] 01/26/2025 9:30 AM EDT Appointment [facility] - Ultrasound [address] [place] [phone] Kae Garnt MD [address] [place] [address] 03/12/2025 9:00 AM EST Office Visit [facility] Pulmonary/Sleep Medicine [address] [place] [phone] Carrie Mabry, DO [address] [address] documented as of this encounter Visit Diagnoses Not on filedocumented in this encounter Additional Health Concerns Assessment Noted Time PHQ-9 Depression Total Score: 15 08/01/2 024 2:12 PM EDT A Body Mass Index follow-up plan has been documented for the patient 08/06/2023 1:12 PM EDT documented as of this encounter Care Teams Seam Press Operator Relationship Specialty Start Date End Date No Pcp, [place] [address] PCP - General Family Medicine 12/06/24 12/22/24 documented as of this encounter
--- NOTE | 2025-01-05 22:02 | ED.ABDPAIN1 ---
HPI - Abdominal Pain General Chief Complaint: Abdominal Pain Stated Complaint: HAD A MISSCARRIAGE/ IN A LOT OF PAIN Time Seen by Provider: 01/05/25 21:32 Source: patient Mode of arrival: walk-in History of Present Illness HPI narrative: This 34-year-old female G2, P1 who is 9 weeks and had a miscarriage and was seen here on Sunday, 2 days ago presents for evaluation of lower abdominal pain and cramping as well as low back pain. She states that after going home she passed a very large clot and had several other large clots. This has since decreased. 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 She denies any fever. She denies any chest pain or shortness of breath. She has an appointment with her FRACTIONATION PLANT SUPERVISOR tomorrow. She has mild nausea but has not vomited. Related Data Home Medications ?Medication ?Instructions ?Recorded ?Confirmed No Known Home Medications 05/12/24 01/03/25 Allergies Allergy/AdvReac Type Severity Reaction Status Date / Time ketorolac (From Toradol) Allergy Intermediate Hives Verified 01/05/25 22:41 tramadol (From Ultram) Allergy Rash Verified 01/05/25 22:41 Review of Systems ROS Status of ROS 10 or more systems reviewed and unremarkable except as noted in history and below PFSH PFSH Social History Little interest or pleasure in doing things: not at all Feeling down, depressed, or hopeless: not at all Exam Narrative Exam Narrative: Vital signs and Nursing Notes reviewed: Patient is afebrile with a normal pulse, normal blood pressure, she is not hypoxic with pulse ox of 99% on room air General: Awake, alert, oriented, no acute distress, lying comfortably on the stretcher HEENT: Normocephalic atraumatic, mucous membranes are moist and pink, eyes are clear, normal conjunctiva, vision is grossly intact, posterior pharynx is normal in appearance. Neck: Supple, no meningeal signs Chest: Lungs are clear to auscultation with good air entry, there is no wheezing rhonchi or rales appreciated no accessory muscle use, patient is speaking in complete sentences-no chest wall tenderness to palpation CVS: Regular rate and rhythm S1-S2, no murmurs rubs or gallops, pulses are brisk and equal bilaterally ABD: Soft, nondistended, mild tenderness to the lower abdominal area, no rebound guarding or rigidity Extremities: Moving all extremities, no lower extremity tenderness or swelling noted, negative Homans' sign, pulses are brisk and equal bilaterally Skin: Not petechial nonperipheral flat pink rash on anterior neck Neuro: No focal deficits Constitutional Vital Signs, click to edit/add: Last Vital Signs Temp 98.7 F 01/05/25 21:38 Pulse 88 01/05/25 21:38 Resp 16 01/05/25 21:38 BP 117/75 01/05/25 21:38 Pulse Ox 99 01/05/25 21:38 O2 Del Method Room Air 01/05/25 21:38 Course Vital Signs Vital signs: Vital Signs Temperature 98.7 F 01/05/25 21:38 Pulse Rate 88 01/05/25 21:38 Respiratory Rate 16 01/05/25 21:38 Blood Pressure 117/75 01/05/25 21:38 Pulse Oximetry 99 01/05/25 21:38 Oxygen Delivery Method Room Air 01/05/25 21:38 Temperature 98.7 F 01/05/25 21:38 Pulse Rate 88 01/05/25 21:38 Respiratory Rate 16 01/05/25 21:38 Blood Pressure 117/75 01/05/25 21:38 Pulse Oximetry 99 01/05/25 21:38 Oxygen Delivery Method Room Air 01/05/25 21:38 MDM - Abdominal Pain MDM Narrative Medical decision making narrative: [facility] [place] [id number] Ultrasound Report Signed Patient: LAURY POWELL MR#: [id number] : 1990 Acct:[id number] Age/Sex: 34 / F ADM Date: 01/03/25 Loc: ER Attending Dr: Ordering Physician: Bryn Barney Date of Service: 01/03/25 Procedure(s): US OB transvaginal Accession Number(s): [id number] cc: Bryn Barney; Physician,Non-Staff M.D.~ The [address] [address] Patient Name: LAURY POWELL MRN: [id number] date: 1990 Sex: F Assigned Patient Location: ER Current Patient Location: ER Accession/Order Number: [id number] Exam Date: 01/03/2025 16:25 Report Date: 01/03/2025 18:44 At the request of: BRYN VALENZUELA Procedure: US OB transvaginal US OB transvaginal 01/03/2025 5:16 PM SIGNS AND SYMPTOMS: ^11 wk ago ^abd bleeding and cramping \S.br\ COMPARISON: None. TECHNIQUE: Limited pelvic ultrasound using transvesical sonography. FINDINGS: An early intrauterine is identified. The visualized fetus has an estimated gestational age of 6 weeks and 4 days which is discordant with the estimated gestational age of 9 weeks 2 days. No cardiac activity is visualized on the current exam.. A normal amount of amniotic fluid is present. There is a heterogeneous collection adjacent to the gestational sac measuring 1.8 x 0.9 x 0.8 This is predominantly hypoechoic and may represent subchorionic hemorrhage. Pelvic survey reveals no gross abnormalities. Ovaries: Normal in size and echogenicity. Right measurements: 3.0 x 1.7 x 1.5 cm Left measurements: 3.4 x 1.8 x 1.7 cm US/US OB transvaginal IMPRESSION: The visualized fetus has an estimated gestational age of 6 weeks and 4 days which is discordant with the estimated gestational age of 9 weeks 2 days. No cardiac activity is noted on the current exam. These findings suggest demise. This is predominantly hypoechoic and may represent subchorionic hemorrhage. Impression dictated by: Reggie Humphries M.D. 01/03/2025 6:44 PM Dictation Location: [place] [address] Electronically authenticated by: [id number] Y Date: 01/03/2025 18:44 This 34-year-old female who was diagnosed with a demise 2 days ago presents for evaluation of abdominal pain and cramping. She passed a large clot after being told that she had a demise in this emergency department and then had some heavy vaginal bleeding which has since resolved but she is still having cramping. She is not having any fever. She denies any chest pain or dizziness. She also complains of some low back pain. This is her second . Her first resulted in a live who is currently 15 years old. Her vital signs are stable. Her lower abdomen is wildly tender with no rebound guarding or rigidity. There is no tenderness in the right lower quadrant. She also complained of mild nausea. An IV is placed and she was medicated with IV fluids, Zofran and Toradol. She denied any improvement in this pain and had a small area of hives after being given the Toradol. She was then given 1.5 mg of IV Benadryl and has not had any additional allergic symptoms since that time. She denied any improvement in her pain with the Toradol and was given a dose of [place]. She has a normal white count and her hemoglobin has dropped from 11.6-10.8. Her electrolyte panel is normal. Her beta quant hCG is dropping as it should and is now in the 500s. I do not have ultrasound available at this time. Clinically I do not suspect she has any retained products of conception that she is not having any heavy vaginal bleeding and states that at this time she is just having small vaginal bleeding with small amount of clotting. She does have a follow-up appointment tomorrow with her FRACTIONATION PLANT SUPERVISOR. She will be discharged home with a prescription for [place], Zofran and ibuprofen with recommendation for return to the emergency department for fever, worsening abdominal pain, foul-smelling vaginal discharge or any concerns. Medical Records Attestation: I reviewed the patient's medical records. Lab Data Attestation: I reviewed the patient's lab results. Labs: Lab Results 01/05/25 Range/Units 22:20 WBC 11.1 H (4.0-11.0) 10^3/uL RBC 4.39 (4.20-5.40) 10^6/uL Hgb 10.8 L (12.0-16.0) g/dL Hct 33.8 L (36.0-48.0) % MCV 77.0 L (81.0-99.0) fL MCH 24.6 L (26.7-34.0) pg MCHC 32.0 (29.9-35.2) g/dL RDW 16.9 H (11.0-15.0) % Plt Count 325 (150-450) 10^3/uL MPV 10.0 (9.5-13.5) fL Neut % (Auto) 58.9 (43.0-75.0) % Lymph % (Auto) 32.3 (20.5-60.0) % [place] % (Auto) 5.8 (1.7-12.0) % Eos % (Auto) 2.2 (0.9-7.0) % Baso % (Auto) 0.5 (0.2-2.0) % Neut # (Auto) 6.5 (1.4-6.5) 10^3/uL Lymph # (Auto) 3.6 (1.2-3.8) 10^3/uL [place] # (Auto) 0.6 (0.3-0.8) 10^3/uL Eos # (Auto) 0.2 (0.0-0.7) 10^3/uL Baso # (Auto) 0.1 (0.0-0.1) 10^3/uL Abs Immat Gran (auto) 0.03 (0.00-0.03) 10^3/uL Imm/Tot Granulo (auto) 0.3 (0.0-0.5) % Sodium 137 (136-145) mmol/L Potassium 3.4 L (3.5-5.1) mmol/L Chloride 102 (98-107) mmol/L Carbon Dioxide 26.3 (21.0-32.0) mmol/L Anion Gap 12.1 BUN 7.0 (7.0-18.0) mg/dL Creatinine 0.66 (0.55-1.02) mg/dL Est GFR ( Amer) >60 (>=60 mL/min/1.73m^2) Est GFR (Non-Af Amer) >60 (>=60 mL/min/1.73m^2) BUN/Creatinine Ratio 10.6 Glucose 98 (74-106) mg/dL Calcium 8.2 L (8.5-10.1) mg/dL Total Bilirubin 0.1 L (0.2-1.0) mg/dL AST 21 (15-37) U/L ALT 34 (14-59) U/L Alkaline Phosphatase 78 (46-116) U/L Total Protein 6.5 (6.4-8.2) g/dL Albumin 3.0 L (3.4-5.0) g/dL Globulin 3.5 g/dL Albumin/Globulin Ratio 0.9 HCG, Quant 540 mIU/mL Discharge Plan Discharge Chief Complaint: Abdominal Pain Clinical Impression: Miscarriage at 8 to 28 weeks gestation Patient Disposition: Home, Self-Care Time of Disposition Decision: 23:15 Condition: Good Prescriptions / Home Meds: No Action No Known Home Medications Print Language: Persian Instructions: Miscarriage (ED) Additional Instructions: Keep your appointment tomorrow with your FRACTIONATION PLANT SUPERVISOR. Return to the emergency department for worsening pain, heavy vaginal bleeding, fever or any concerns. Use pain medication and nausea medication as needed. Referrals: Physician,Non-Staff, MD [Primary Care Provider] - 1 week
[2025-01-05] MEDS: KETOROLAC TROMETHAMINE 30 MG/ML VIAL IVP (22:18)
[2025-01-05] MEDS: 0.9 % SODIUM CHLORIDE 1,000 ML 1000 ML IV (22:18)
[2025-01-05 22:35] LABS: Hematocrit 33.8 % (36.0-48.0); Hemoglobin 10.8 g/dL (12.0-16.0); Immature Granulocytes Abs Auto 0.03 10^3/uL (0.00-0.03); Immature Granulocytes Pct Auto 0.3 % (0.0-0.5); Lymphocytes Absolute Auto 3.6 10^3/uL (1.2-3.8); Mean Corpuscular HGB Conc 32.0 g/dL (29.9-35.2); Mean Corpuscular Hemoglobin 24.6 pg (26.7-34.0); Mean Corpuscular Volume 77.0 fL (81.0-99.0); Platelet Count 325 10^3/uL (150-450); Red Blood Count 4.39 10^6/uL (4.20-5.40); White Blood Count 11.1 10^3/uL (4.0-11.0)
[2025-01-05] MEDS: DIPHENHYDRAMINE HCL 50 MG/ML VIAL 12.5 MG IVP (22:36)
--- NOTE | 2025-01-05 22:39 | PC.NURSE ---
After giving the Toradol, it was noted that a hive formed at the end of the IV cath. It was itchy and felt like it burned. aware. Cici orders received.
[2025-01-05 22:53] LABS: Alanine Aminotransferase 34 U/L (14-59); Albumin Globulin Ratio 0.9; Albumin Level 3.0 g/dL (3.4-5.0); Alkaline Phosphatase 78 U/L (46-116); Anion Gap 12.1; Aspartate Amino Transferase 21 U/L (15-37); Blood Urea Nitrogen 7.0 mg/dL (7.0-18.0); Calcium 8.2 mg/dL (8.5-10.1); Carbon Dioxide 26.3 mmol/L (21.0-32.0); Chloride 102 mmol/L (98-107); Estimated GFR (African America >60 (>=60 mL/min/1.73m^2); Estimated GFR (Non-African Ame >60 (>=60 mL/min/1.73m^2); Globulin 3.5 g/dL; Glucose 98 mg/dL (74-106); Potassium 3.4 mmol/L (3.5-5.1); Sodium 137 mmol/L (136-145); Total Protein 6.5 g/dL (6.4-8.2)
[2025-01-05] MEDS: HYDROCODONE/ACET 5-325 MG TABLET 1 TAB PO (23:17)
== END 2025-01-05 23:45 | disposition home or self-care (01) ==
PROVIDERS: Emergency Provider Emergency Medicine
DX: O03.9 Complete or unspecified spontaneous abortion without complication (principal)
CPT/HCPCS: 36415; 80053; 84702; 85025; 96374; 96375; 99284; 99285; J1200; J1885; J2405